=== PATIENT | male | born 1945 | race Caucasian/White ===

== ENCOUNTER 2017-04-14 01:23 | Inpatient (IN) | payer MEDICARE ==
[2017-04-14] VITALS (11 sets, daily range): BP systolic 125–154; BP diastolic 52–84; PULSE 79–105; RESP 18–40; O2SAT 92–98
[~2017-04-14] VITALS: Ht 182.9 cm; Wt 130.1 kg
[~2017-04-14 01:23] MED LIST: AMLO2.5T PO; ASPI81TA53 PO; GLBR5T PO; INSU100I SUBQ; INSU100I13 SUBQ; LISI40TA PO; SIMV80TA4 PO
[2017-04-14 01:34] LABS: BASOPHILS % (AUTO) 0.1 % (0-3); EOSINOPHILS % (AUTO) 0.6 % (0-5); MONOCYTES % (AUTO) 8.6 % (4-12); Mean Corpuscular Hemoglobin 28.6 pg (27.0-35.0); Mean Corpuscular Volume 86.8 fL (81-100); NEUTROPHILS % (AUTO) 81.3 % (40-74); Platelet Count 289 bil/L (150-400)
--- NOTE | 2017-04-14 01:41 | ED.REPORT ---
HPI-General Illness Date of Service April 14, 2017 ED Provider: Dr. Garcia Pt is a 71 year old male with a history of diabetes mellitus, hyperlipidemia, and hypertension who presents to the ED via EMS due to falling off his back porch. His blood sugar was 467 on route, and 530 upon recheck at 01:48. Pt has no memory of falling off the porch. Per , the patient took a sleeping pill, but the EMS couldn't find any sleeping pills. Pt has an infection, with signs of purulent drainage from the right mastoid, that has been present for the past two months, and he has not been previously seen for it. Patient denies fever, chest pain, abdominal pain, headache, neck pain, back pain. Patient admits to nausea and vomiting previously. Pt arrived with stool on hands and legs likely due to falling into dog stool in the yard. History is limited due to patient condition. Nursing Notes Stated Complaint: HYPERGLYCEMIA Chief Complaint: General Complaint Nursing Notes Reviewed: Yes Allergies: Coded Allergies: No Known Allergies (Unverified Allergy, Unknown, 04/14/17) Scheduled Amlodipine (Amlodipine) 2.5 Mg Tablet 2.5 MG PO AM Amlodipine (Amlodipine) 2.5 Mg Tablet 5 MG PO QPM Aspirin (Aspirin) 81 Mg Tablet 81 MG PO DAILY Glyburide (Glyburide) 5 Mg Tab 10 MG PO BIDAC Insulin Glargine (Lantus U100 Solostar Insulin Pen) 100 Unit/1 Ml Insuln.pen 45 UNIT SUBQ HS Lisinopril (Lisinopril) 40 Mg Tablet 40 MG PO BID Simvastatin (Simvastatin) 80 Mg Tablet 40 MG PO HS Scheduled PRN Insulin Aspart (NovoLOG U-100 Pen) 100 Unit/Ml Insuln.pen 0-20 UNITS SUBQ TIDWM PRN PRN sliding scale General Time Seen by MD: 01:40 Chief Complaint Other (Fall ) Hx Obtained From: Patient, EMS Arrived By: Ambulance Caused by: Fall from height... Severity: Current: No pain currently Severity: Maximum: No pain Past Medical History Past Medical History Reports: Diabetes mellitus, Hyperlipidemia, Hypertension Past Surgical History None reported Smoking History Never Smoker Social History Alcohol Use: Denies alcohol use Drug Use: Denies drug use Ambulatory Status Independent Review of Systems +draining from right mastoid Full Review of Systems Constitutional: Denies: Chills, Fever Cardiovascular: Denies: Chest pain GI: Reports: Nausea, Vomiting, Denies: Abdominal pain Neurologic: Reports: Change LOC, Denies: Headache Complete sys rev & neg: except as marked. Physical Exam Vital Signs Vital Signs Date Time Temp Pulse Resp B/P Pulse Ox O2 Delivery O2 Flow Rate FiO2 04/14/17 06:31 36.9 88 18 152/84 98 04/14/17 04:00 36.8 82 20 140/52 98 04/14/17 01:37 37.1 105 20 150/66 97 Nasal Cannula 2 Initial VS: Reviewed Head / Eyes: Atraumatic, Normocephalic, PERRL Neck: Supple, Full range of motion Respiratory: Breath sounds normal, Clear to auscultation, No respiratory distress Extremities: Vascular intact, Neuro intact, No swelling General/Constitutional: Awake, Cooperative Appearance / Presentation: Positive: Obese Sedated, but arousable. Fecal matter smeared on hands and knees. ENT: Atraumatic, Airway patent Mouth: Positive: Mucous membranes dry Right Ear / Mastoid: Positive: Discharge purulent (large amounts), Mastoid area red Cardiovascular: Heart rate NL, Regular rhythm, Heart sounds NL, No gallop, No murmurs, No rubs Distant heart sounds Abdomen: Atraumatic, Soft, Non-tender Skin: No rash, Warm, Dry Male Genitourinary: Atraumatic Uncircumcised Not incontinent Neurologic: No motor deficits Sedated but arousable Interpretation & Diagnostics Lab Results Interpretation Result Diagram: 04/14/17 1305 04/14/17 1305 Test 04/14/17 01:31 04/14/17 02:50 Erythrocyte Sedimentation Rate 63mm/hr (0-30) Prothrombin Time 10.0sec (8.1-12.5) Prothromb Time International Ratio 0.94ratio Activated Partial Thromboplast Time 25.2sec (22.8-33.0) Hemoglobin A1c 11.1% (4.8-5.6) Phosphorus Level 3.2mg/dL (2.5-4.9) Total Bilirubin 0.3mg/dL (0.0-1.2) Aspartate Amino Transf (AST/SGOT) 13U/L (0-50) Alanine Aminotransferase (ALT/SGPT) 11U/L (0-44) Alkaline Phosphatase 118U/L (25-160) Pro-B-Type Natriuretic Peptide 731pg/mL (0-376) Total Protein 7.1g/dL (6.4-8.4) Albumin 3.1g/dL (3.4-5.0) Procalcitonin 0.37ng/mL (0.00-0.08) Ketones Small (Negative) Urine Color Yellow (YELLOW) Urine Appearance Clear (CLEAR,HAZY) Urine pH 5.0 (5.0-8.0) Urine Specific [place] 1.022 (1.003-1.035) Urine Protein 30mg/dL (NEG,TRACE) Urine Glucose (UA) >1000mg/dL (NEGATIVE) Urine Ketones Negativemg/dL (NEGATIVE) Urine Occult Blood Small (NEGATIVE) Urine Nitrite Negative (NEGATIVE) Urine Bilirubin Negative (NEGATIVE) Urine Urobilinogen Normalmg/dL (NORMAL) Urine Leukocyte Esterase Negative (NEGATIVE) Urine RBC 0-2/hpf (0-2) Urine WBC 6-10/hpf (0-5) Urine Epithelial Cells Few/hpf (NONE-MOD) Urine Crystals None seen (NONE SEEN) Urine Bacteria None/hpf (NONE-FEW) Urine Hyaline Casts None/lpf (NONE) Urine Granular Casts None seen (NONE SEEN) Urine Waxy Casts None seen (NONE SEEN) Urine Red Blood Cell Casts None seen (NONE SEEN) Urine White Blood Cell Casts None seen (NONE SEEN) Urine Mucus Present (None Seen) Urine Trichomonas None seen (NONE SEEN) Urine Yeast None (NONE SEEN) Urine Culture Reflexed Indicated X-Ray Chest Interpretation View: Portable, 1 view Interpretation / Wet Read by: Wet read ED physician NL X-Ray Chest Findings: No infiltrate, No acute disease CT Head Interpretation CONCLUSION: Right suboccipital neck-scalp contusion. No acute intacranial abnormality. Streak artifact. Trabnsmitted to the ED at 04:03 by Maricarmen Edwards M.D. Study: Head CT no contrast Interpretation / Wet Read by: Interpret - Radiologist CT C-Spine Interpretation CONCLUSION: Motion artifact. Decreased fine detail. Degenerative changes, especially at C5-C7. No evidence of fracture or subluxation. Moderate right suboccipital-upper neck presumed soft tissue contusion. Mild cervical carotid calcifications. Minimally prominent cervical lymph nodes. Unremarkable extreme lung apices. Transmitted to ED 04:08 by Maricarmen Edwards M.D. Study type: CT no contrast Interpretation / Wet Read by: Interpret - Radiologist Procedures Laceration Management Debridement: None Re-Eval/Medical Decision Med Decision/Clinical Course 71-year-old diabetes presents with altered mental status, apparently after taking a sleeping pill. He had a low level fall without apparent injury, but apparently fell into some dog waste. 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 This may well account for his hyperglycemia. He has no evidence of DKA. He briefly had an elevated lactate, which is now resolved. He is begun with Zosyn and vancomycin for soft tissue infection. Culture of the drainage has been obtained, along with blood cultures. He is admitted for further evaluation and management to the medical service. Time of Eval: 04:12 Re-Evaluation/Progress Note: Pt rechecked. Informed pt of plan for admission. Pt understands and agrees with plan for admission. All questions addressed. Consultation : Referral / Consult Name: Jase Newman MD Consulted With: Hospitalist Call Returned at: 04:13 Concrete Analyst: Will see patient, Agrees with eval, Agrees with plan, Accepts admit Counseled Regarding: Diagnosis, Lab results, Need for admission Discharge & Departure Primary Impression: Sepsis Sepsis type: sepsis due to unspecified organism Qualified Code: A41.9 - Sepsis, unspecified organism Additional Impressions: Mastoid abscess Laterality: right Qualified Code: H70.001 - Acute mastoiditis without complications, right ear Hyperglycemia Altered mental status Altered mental status type: somnolence Qualified Code: R40.0 - Somnolence Disposition: ADMITTED TO HOSPITAL Discharge Condition All VS Reviewed: Yes Condition: Stable Referrals: Graeme Steward MD (PCP) Scribe Attestation Portions of this note were transcribed by David Griggs and Barb Conley. I, Dr. Garcia personally performed the history, physical exam and medical decision -making; I reviewed and confirmed the accuracy of the information in the transcribed note. Signed by: David Griggs and Barb Conley, Scribe, 04/14/17 and 0230. copies to: Graeme Steward MD, Christopher W MD April 14, 2017 01:41 Barb Robert 23, 2017 01:57 DAVID GRIGGS April 14, 2017 02:32 Urine Hyaline Casts None/lpf (NONE) Urine Granular Casts None seen (NONE SEEN) Urine Waxy Casts None seen (NONE SEEN) Urine Red Blood Cell Casts None seen (NONE SEEN) Urine White Blood Cell Casts None seen (NONE SEEN) Urine Mucus Present (None Seen) Urine Trichomonas None seen (NONE SEEN) Urine Yeast None (NONE SEEN) Urine Culture Reflexed Indicated Lactic Acid Level 1.6mmol/L (0.4-2.0) X-Ray Chest Interpretation View: Portable, 1 view Interpretation / Wet Read by: Wet read ED physician NL X-Ray Chest Findings: No infiltrate, No acute disease CT Head Interpretation CONCLUSION: Right suboccipital neck-scalp contusion. No acute intacranial abnormality. Streak artifact. Trabnsmitted to the ED at 04:03 by Maricarmen Edwards M.D. Study: Head CT no contrast Interpretation / Wet Read by: Interpret - Radiologist CT C-Spine Interpretation CONCLUSION: Motion artifact. Decreased fine detail. Degenerative changes, especially at C5-C7. No evidence of fracture or subluxation. Moderate right suboccipital-upper neck presumed soft tissue contusion. Mild cervical carotid calcifications. Minimally prominent cervical lymph nodes. Unremarkable extreme lung apices. Transmitted to ED 04:08 by Maricarmen Edwards M.D. Study type: CT no contrast Interpretation / Wet Read by: Interpret - Radiologist Procedures Laceration Management Debridement: None Re-Eval/Medical Decision Med Decision/Clinical Course 71-year-old diabetes presents with altered mental status, apparently after taking a sleeping pill. He had a low level fall without apparent injury, but apparently fell into some dog waist. He has a chronic infection of his right Herminio O auricular area, which is over the mastoid prominence, but does not involve the bone or the mastoid itself. This may well account for his hyperglycemia. He briefly had an elevated lactate, which is now resolved. He is begun with Zosyn and vancomycin for soft tissue infection. Culture of the drainage has been obtained, along with blood cultures. He is admitted for further evaluation and management medical services. Time of Eval: 04:12 Re-Evaluation/Progress Note: Pt rechecked. Informed pt of plan for admission. Pt understands and agrees with plan for admission. All questions addressed. Consultation : Referral / Consult Name: Jase Newman MD Consulted With: Hospitalist Call Returned at: 04:13 Concrete Analyst: Will see patient, Agrees with eval, Agrees with plan, Accepts admit Counseled Regarding: Diagnosis, Lab results, Need for admission Discharge & Departure Primary Impression: Sepsis Sepsis type: sepsis due to unspecified organism Qualified Code: A41.9 - Sepsis, unspecified organism Additional Impressions: Mastoid abscess Laterality: right Qualified Code: H70.001 - Acute mastoiditis without complications, right ear Hyperglycemia Altered mental status Disposition: ADMITTED TO HOSPITAL Discharge Condition All VS Reviewed: Yes Condition: Stable Referrals: Graeme Steward MD (PCP) Scribe Attestation Portions of this note were transcribed by David Griggs and Barb Conley. I, Dr. Garcia personally performed the history, physical exam and medical decision -making; I reviewed and confirmed the accuracy of the information in the transcribed note. Signed by: aDvid Griggs and Kale Bardales, 04/14/17 and 0230. copies to: Graeme Steward MD, Christopher W MD April 14, 2017 01:41 Barb Robert April 14, 2017 01:57 DAVID GRIGGS April 14, 2017 02:32
[2017-04-14] MEDS ORDERED: 0.9% Sodium Chloride 1,000 ML IV ONE (01:48)
[2017-04-14 02:10] LABS: INR 0.94 ratio
[2017-04-14] MEDS ORDERED: Insulin Human REGular-Omnicell 100 Unit/mL IV ONE ×2 (02:25→04:20)
[2017-04-14 02:41] LABS: Magnesium 1.7 mg/dL (1.6-2.6); Phosphorus 3.2 mg/dL (2.5-4.9)
[2017-04-14 03:33] LABS: APPEARANCE,URINE CLEAR (CLEAR,HAZY); COLOR,URINE YELLOW (YELLOW); OCCULT BLOOD,URINE SMALL (NEGATIVE); UROBILINOGEN,URINE NORMAL (NORMAL)
[2017-04-14] MEDS ORDERED: 0.9% Sodium Chloride 1,000 ML IV SCH ×2 (04:14)
[2017-04-14] MEDS ORDERED: Ondansetron 2 mg/mL 2 mL Inj IVPUSH PRN ×2 (04:15→12:45)
[2017-04-14] MEDS ORDERED: Alum-Mag Hydrox-Simeth 30 mL Suspension PO PRN ×2 (04:15→12:45)
[2017-04-14] MEDS ORDERED: Vancomycin Dose per Pharmacist XX ONE (04:15)
[2017-04-14] MEDS ORDERED: Piperacillin-Tazo 3.375 Gm Inj 3.375 GM in Dextrose 5% Minibag Plus 50 ML IV ONE (04:15)
[2017-04-14] MEDS ORDERED: Polyethylene Glycol (PEG) 17 Gm Powder PO PRN ×2 (04:15→12:45)
[2017-04-14] MEDS ORDERED: Dextrose 10% 250 ML IV PRN ×2 (04:20→12:45)
[2017-04-14] MEDS ORDERED: Glucose 40% Oral Gel 15 Gm Tube PO PRN (04:20)
[2017-04-14] MEDS ORDERED: Vancomycin Inj 2,000 MG in 0.9% Sodium Chloride 500 ML IV ONE (04:25)
[2017-04-14] MEDS: Insulin LISPRO 300 Unit/3 mL Inj SUBQ SCH ×2 (08:00→12:30)
--- NOTE | 2017-04-14 08:16 | DRSVH ---
PROCEDURE: CT BRAIN WITHOUT CONTRAST ([id number]) INDICATIONS: mastoid drainage, fall, altered ms TECHNIQUE: Noncontrast 4.5 mm thick angled axial sections acquired from the foramen magnum to the vertex, with c oronal reformats. COMPARISON: None. FINDINGS: Image quality: Motion artifacts are present. CSF spaces: Basal cisterns are patent. No extra-axial fluid collections. The ventricles are symmet jack in size and shape. Brain: No intracranial bleeds or masses. There is mild cerebral volume loss for age. There are mil d periventricular and deep white matter chronic small vessel ischemic changes. There is intracranial internal carotid artery atherosclerosis. Skull and face: Calvarium and visualized facial bones appear intact, without suspicious lesions. Ri ght occipital soft tissue swelling. Sinuses: Visualized sinuses and mastoids are clear. IMPRESSION: 1. No acute intracranial abnormalities. 2. Mild cerebral volume loss and chronic microvascular ischemic changes. 3. Right occipital soft tissue swelling. No significant discrepancy with the assistant casino shift manager radiology preliminary report. Dictated by: An Moise M.D. on 04/14/2017 at 8:12 Approved by: An Moise M.D. on 04/14/2017 at 8:14
--- NOTE | 2017-04-14 08:20 | DRSVH ---
PROCEDURE: CT CERVICAL SPINE WITHOUT CONTRAST ([id number]) INDICATIONS: mastoid drainage, fall, altered ms TECHNIQUE: Noncontrast 3 mm thick sections acquired from the skull base to the T4 level. Sagittal and coronal r eformats were then constructed. For radiation dose reduction, the following was used: automated exp osure control, adjustment of mA and/or kV according to patient size. COMPARISON: None. FINDINGS: Image quality: Motion artifacts degrade images. Bones: No fractures or dislocations. Visualized superior ribs are intact. Partial opacification of the right mastoid. There is mild degenerative disease at C4-C5, C5-C6 and C6-C7. Mild bilateral face t arthropathy, most pronounced at C2-C3 on the left. Soft tissues: Prevertebral soft tissues are normal in thickness. No paravertebral hematomas. No ap ical pneumothoraces. Soft tissue swelling in the right occipital region. Scattered prominent cervica l lymph nodes is noted bilaterally. IMPRESSION: 1. Limited examination due to motion artifacts. 2. No definitive fractures in cervical spine. 3. Degenerative changes as described. 4. Soft tissue swelling in the right occipital region. 5. Partial opacification of right mastoids. Recommend clinical correlation for mastoiditis. Dictated by: nA Moise M.D. on 04/14/2017 at 8:15 Approved by: An Moise M.D. on 04/14/2017 at 8:19
[2017-04-14] MEDS ORDERED: Heparin 5,000 Unit/mL Inj SUBQ SCH (08:30)
[2017-04-14] MEDS ORDERED: Vancomycin Dose per Pharmacist XX SCH (08:30)
[2017-04-14] MEDS ORDERED: Sodium Chloride LOK Flush 10 mL Syringe IVFLUSH SCH (08:30)
--- NOTE | 2017-04-14 09:11 | DRSVH ---
PROCEDURE: X-RAY CHEST ONE VIEW, PORTABLE ([id number]) INDICATIONS: altered mental status TECHNIQUE: One view of the chest was acquired. COMPARISON: [facility], CR, XR CHEST 2VW, 02/02/2017, 12:29. [facility], CR , CHEST 1VW (PORTABLE), 04/03/2015, 10:19. FINDINGS: Surgical changes and devices: None. Lungs and pleura: No pleural effusions or pneumothorax. Lungs are clear, aside from minimal atelect asis versus scarring involving the mid left lung. Mediastinum: Mediastinal contours appear normal. Heart size is normal. Bones and chest wall: No suspicious bony lesions. Overlying soft tissues appear unremarkable. IMPRESSION: No acute cardiopulmonary disease. Dictated by: Karthik GREENE Interpreted: An Moise MD on 04/14/2017 at 9:09 Transcribed by: ARELY on 04/14/2017 at 9:11 Approved by: An Moise M.D. on 04/14/2017 at 11:59
--- NOTE | 2017-04-14 09:53 | NUR ---
Admit MPC from ED rm 3004 Pt arrived to unit at 0820 on stretcher denying pain. Pt appears A&O x3, disoriented at times. Seen to be unwrapping coban from IV site, trying to get out of bed. Family unreachable at this time. Primary RN sitting just outside of pts room for closer observation. IV patent, NS and Vanco infusing. Rangel placed in ED d/t confusion-per report. Waiting on day hospitalist to see pt. Abscess noted on back of R head-occipital area. cleaned with NS and sterile gauze applied. Pt denies pain there, is seen to be scratching at the area. Tele placed on. technical supervisor called reporting 4bts of Vtach lasting 1.8 sec with HR at 90 bpm. MD notified. Pt oriented to room and unit, denies having questions. Will continue with frequent monitoring.
[2017-04-14] MEDS ORDERED: Magnesium Sulf 4 Gm/100 mL H2O 4 GM in IV Premix 1 EACH IV ONE (10:40)
--- NOTE | 2017-04-14 10:54 | NUR ---
Pt. O2 sat between 80-90 while sleeping. Applied nasal cannula @ 2L/min
[2017-04-14] MEDS ORDERED: INSULIN GLARGINE 30 UNIT SUBQ SCH (12:55)
[2017-04-14 13:14] LABS: BASOPHILS % (AUTO) 0.1 % (0-3); EOSINOPHILS % (AUTO) 0.4 % (0-5); MONOCYTES % (AUTO) 7.4 % (4-12); Mean Corpuscular Hemoglobin 28.5 pg (27.0-35.0); Mean Corpuscular Volume 87.4 fL (81-100); Platelet Count 278 bil/L (150-400)
[2017-04-14 13:41] LABS: Magnesium 1.9 mg/dL (1.6-2.6)
[2017-04-14] MEDS ORDERED: Piperacillin-Tazo 3.375 Gm Inj 3.375 GM in Dextrose 5% Minibag Plus 50 ML IV SCH (14:00)
[2017-04-14] MEDS ORDERED: Magnesium Sulf 2 Gm/50mL Water 2 GM in IV Premix 1 EACH IV ONE (14:00)
--- NOTE | 2017-04-14 14:28 | NUR ---
Social Work-initial assessment: Data:See initial assessment. Pt is a 71 y/o male who was admitted on 04/14/17 for hyperglycemia/confusion per H&P. Pt's insurance is [facility] and [facility] [employer] and PCP is Graeme Steward MD. Pt also had first appt scheduled with diabetic specialist Dr. Porras but missed this appt. EMR Reviewed. Pt's readmission score is 2-no risk. SW met with pt and Olga to discuss discharge planning, SW role explained. Pt presented as drowsy but other delgado alert and oriented x3. Pt resides at home with , daughter, and grandchild in a 3 level home near [place] with two steps to enter and at least 10 internal steps where pt remains independent with basic ADLs. Pt uses no DME at baseline and drives POV. Pt has no HH or SNF history. Pt has not completed DPOA/ advanced directive and SW provided paperwork to review and complete. Pt has no care home care or [facility] benefits. SW checked in with pt and about home environment as it was reported pt was found with feces on him and had an untreated abscess on the back of his neck. Pt's stated she has been telling him for the past two weeks to go in to get the abscess looked at, and the feces was possibly from when he fell last night and defecated himself. Pt's requested information on food resources, as she would like to stay with her at the hospital and has no funds for food (her debit card needs to be replaced). SW provided info on local food page and meal programs. Pt's daughter to provide transport home at discharge. SW provided phone number and plan on white board in room. SW will continue to follow. Assessment:Pt who resides at home with family and is independent at baseline. Plan:Pt to likely discharge home when medically ready via POV. SW to follow for possible HH needs. SW will continue to follow. TERRANCE Carlos Addendum: 04/14/17 at 1440 by RAQUEL RADFORD SS Amended: Links added.
--- NOTE | 2017-04-14 14:46 | DRSVH ---
PROCEDURE: US SOFT TISSUE OF HEAD OR NECK SONOGRAM INDICATIONS: right neck cellulitis and ? abscess TECHNIQUE: Real-time scanning was performed of the neck region of interest, with image documentation. COMPARISON: [facility], CT, CT CERVICAL SPINE WO CON, 04/14/2017, 3:26. FINDINGS: There is marked soft tissue swelling in the posterior right upper neck/mastoid region. No d rainable fluid collection. Prominent lymph node measures 9 mm short axis, most like a reactive. IMPRESSION: 1. No drainable fluid present to suggest abscess. 2. Marked soft tissue swelling over the posterior right upper neck/mastoid region consistent with alta lulitis. Dictated by: An Moise M.D. on 04/14/2017 at 14:42 Approved by: An Moise M.D. on 04/14/2017 at 14:44
[2017-04-14] MEDS ORDERED: ASPI-973 PO (14:58)
--- NOTE | 2017-04-14 15:08 | NUR ---
home dose of lantus insulin noted when updating home medication list that patient currently takes 45 units lantus at HS per patient report and per primary MD list. noted that previous dose in computer from previous visit is 30 units and MD continued the 30 units at HS dose. primary RN Ca Garber notified and will notify MD that patient not takes 45 units of lantus at HS.
[2017-04-14] MEDS: Piperacillin-Tazo 3.375 Gm Inj 3.375 GM in Dextrose 5% Minibag Plus 50 ML IV SCH (16:07)
--- NOTE | 2017-04-14 16:09 | NUR ---
Wound Note 71 yo diabetic male admitted to [facility] with altered mentation. Wound order received to assess right mastoid process wound. Patient reports wound is approx 2 weeks in duration. Tissue behind ear is hard and indurated for approx 7 cm around a small 0.5 cm purulent draining ulcer, drainage is sosa and foul smelling. I am able to probe with a q-tip 3 cms inferiorly (6 o'clock). Patient is quite tolerant to wound care today. Will pack with 1/4 " packing strip and cover with gauze and tape until addressed by surgery service.
[2017-04-14] MEDS: DAPTOmycin Inj 750 MG in 0.9% Sodium Chloride 50 ML IV SCH (16:22)
[2017-04-14] MEDS: Heparin 5,000 Unit/mL Inj SUBQ SCH (16:22)
--- NOTE | 2017-04-14 16:36 | CONS ---
[address] [address] CONSULTATION REPORT PATIENT: GUZMAN BRADLEY : 1945 MR#: [id number] ADMIT: 04/14/2017 JOB ID: [id number] DATE OF SERVICE: 04/14/2017 REASON FOR CONSULTATION: Right posterior auricular mastoid area soft tissue infection. I thank Dr. Herron for this timely consult. HISTORY OF THE PRESENT ILLNESS: The patient is a 71-year-old diabetic gentleman who ran out of insulin for the past few days Due to a shipping error. Even before he ran out of insulin though, he started to develop a tender, draining, fluctuant, purulent area behind his right ear. It is unclear how exactly this process started and it is unclear exactly even how long it started. The patient says it has been there two months. His says a week or two and a daughter says less. In any event, this has been waxing and waning but there has been a great deal of purulence and some pain in the area behind the ear. His daughter attempted an amateur I and D on it approximately three days ago which drained a great deal of bloody pus and may have made it actually somewhat better. The patient presented to the hospital and was admitted today because he was apparently urinating off the porch and fell. This caused the paramedics to be summoned and the patient was brought here and admitted. At the time of admission earlier today, there was some question about confusion as well as obvious very significant infection and some systemic toxicity but he since rallied some and is now able to give us some independent history though certainly not a complete story. The patient and his family are uncertain as to how this lesion behind his ear started or even exactly how long it has been present but they do agree it got steadily worse until the I and D by his daughter which seemed to improve things at least somewhat. There has been no associated subjective fevers, chills, or sweats. He has had pain around the site of the infection but no global headache, no change in vision. No significant cough, shortness of breath. He has had a bit of nausea but no vomiting or diarrhea. No urinary tract symptoms and no infections known elsewhere in the skin or soft tissues at this time. PAST MEDICAL HISTORY: 1. Diabetes. 2. Hyperlipidemia. 3. Hypertension. 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 He is a former smoker and no longer consumes alcohol products. He lives with his family in the area above [place], but formally traveled all around the [place]. FAMILY HISTORY: Negative for TB in first- and second-degree relatives. REVIEW OF SYSTEMS: Was a bit limited as the patient is somewhat lethargic but is able to offer some history. The patient tells us he is not having significant headache. No visual change. No sore throat or trouble swallowing. No significant cough, shortness of breath, chest pain. He has had a bit of nausea. No vomiting. No diarrhea. No dysuria, urgency, or frequency. No particular new problems with his joints. He has just had the drainage and pain from behind his right ear for, he says, two full months. No actual change in hearing either. Remainder of the review of systems was unobtainable or negative. PHYSICAL EXAMINATION: Reveals an afebrile gentleman, temp 37.6. That is his highest of his now about 12 hours here in the hospital. Pulse 83, respiratory rate 36 at times. When we evaluated the patient though, he was probably much lower in the mid 20s. He is saturating well on 1 L. Blood pressure 154/69. He is in no acute distress but he is somewhat lethargic. Examination of the head reveals no trauma. There is a diffusely erythematous area behind the right ear, extending down to the area of the mastoid. The total area is probably 6 or 7 cm across. In the center of it there is a wound draining copious amounts of creamy-colored pus. Surprisingly palpation of this area with a gloved hand does not result in tremendous pain though it is a bit tender. The ear itself is not involved, nor is the neck per se involved. The other ear appears normal. Eyes without conjunctivitis or scleral icterus. Oral cavity: No thrush, hairy leukoplakia. Teeth in fair repair. Neck is supple. Mental status: The patient is alert and oriented x3 at this point, though earlier in the day, he was a little bit off. Lungs: Relatively clear bilaterally. Cardiac tones: Regular rate and rhythm without demonstrable murmur. Abdomen is soft, nontender, and quite obese. BMI currently 42. He does have a Rangel catheter which was installed after his admission and should be discontinued as soon as possible. No suprapubic fullness. Examination of the lower extremities: No synovitis, no cellulitis, no significant peripheral edema. Neurologically, the patient is intact: He can move everything and has reasonable sensation. LABORATORY STUDIES: Include white count 19,000 with left shift. Sed rate 63, creatinine 1.74. Liver function tests normal. BNP 731. Albumin 3.1. First creatinine was 1.94. That was in the media relations director hours today. A repeat done just an hour ago was 1.74 so a bit better. Glucose was an impressive 635 on admission. He has already all the way down to 237, with some insulin. INR normal. Urinalysis 6-10 white cells, probably normal given his age and other issues. Micro studies include a culture of the abscess which has been sent. It shows rare polys and no organisms so far, but based on the appearance of this purulent material it is going to grow something. Blood cultures are negative. Urine is pending. MRSA screen of the nose is pending. IMAGING: Multiple and include a chest x-ray, which is basically read as normal. C-spine CT scan: It shows no C-spine fracture. There is some soft tissue swelling in the right occiput which I think is the area of cellulitis we are looking at and a partial opacification of the right mastoid. Brain CT shows some volume loss and right occipital swelling again and finally a neck ultrasound shows nothing to suggest abscess but some marked soft tissue swelling of the right upper neck mastoid region consistent with the cellulitis we see on physical. IMPRESSION: This is a bit of an odd case in that the patient does not have malignant otitis externa which is very common in elderly poorly controlled diabetics as his ear is not involved nor does he appear to have mastoiditis clinically, even though he does have some suggestion of mastoiditis on the CT. It would be extraordinary for mastoiditis to perforate and drain onto the skin, such as are seeing here. More likely, I think this is a bad Staph or less likely Streptococcal infection arising from some pimple, furuncle, or carbuncle on the right postauricular area, which has just festered and worsened, perhaps being aided by his extraordinarily high blood sugars due to insulin nonadherence. He is currently on vancomycin and Zosyn which is reasonable but I do worry about an elderly gentleman with diabetic kidneys and an elevated creatinine receiving this synergistically nephrotoxic regimen. RECOMMENDATIONS: 1. While we await the MRSA screen and cultures, I would stop the vancomycin and instead use daptomycin. Daptomycin is a safer choice in these circumstances and I think we will soon be able to further clarify his antibiotics going forward. 2. Will continue with Zosyn. 3. We plan to add daptomycin. 4. A nasal MRSA screen is pending. 5. Will continue to follow this complex patient with you. Thank you very much for this consult.
[2017-04-14] MEDS: Insulin Human REGular 300 Unit/3 mL Inj SUBQ SCH ×2 (16:52→21:37)
[2017-04-14] MEDS ORDERED: Vancomycin Inj 1,000 MG in IV Premix 1 EACH IV SCH (18:00)
--- NOTE | 2017-04-14 18:57 | PCM.HPMED ---
Subjective Date of Service April 14, 2017 Primary Provider: Admitting Physician: Edinson Herron Primary Care Physician: Graeme Steward MD Attending Physician: Edinson Herron Chief Complaint: right neck abscess and drainage History of Present Illness: 71 year old male with a history of insulin dependant diabetes mellitus, hyperlipidemia, and hypertension who presents to the ED via EMS due to reported "falling off his back porch". His blood sugar was 467 on route, and 530 upon recheck in the ED. Patient himself does not recall any fall and tell me that the reason he came to the hospital was because of a neck abscess and drain that has been going on for the past 2 weeks. He says his daughter was trying to manage this at home by squeezing pus out of it but when it seemed that he wasn' t improving she decided to bring him to the hospital. He also tells med that he has not been taking insulin for the past one week after running out of prescription and missing his appointment with the b2b account executive last . He otherwise denies any fever, chills, nausea, vomiting, change in mental status , fall, or passing out. Review of Systems: Constitutional: Negative, except as otherwise mentioned in the history above. Ophthalmologic: Negative, except as otherwise mentioned in the history above. Cardiovascular: Negative, except as otherwise mentioned in the history above. Respiratory: Negative, except as otherwise mentioned in the history above. Gastrointestinal: Negative, except as otherwise mentioned in the history above. Genitourinary: Negative, except as otherwise mentioned in the history above. Musculoskeletal: Negative, except as otherwise mentioned in the history above. Neurological: Negative, except as otherwise mentioned in the history above. Psychiatric: Negative, except as otherwise mentioned in the history above. Hematologic/Lymphatic: Negative, except as otherwise mentioned in the history above. Allergic/Immunologic: Negative, except as otherwise mentioned in the history above. Allergies Coded Allergies: No Known Allergies (Unverified Allergy, Unknown, 04/14/17) Home Medications Amlodipine 2.5 Mg Tablet 2.5 Mg PO AM 30 Days Ref 0 Amlodipine 2.5 Mg Tablet 5 Mg PO QPM 30 Days Ref 0 Lisinopril 40 Mg Tablet 40 Mg PO BID 30 Days Ref 0 Simvastatin 80 Mg Tablet 40 Mg PO HS 30 Days Ref 0 Aspirin 81 Mg Tablet 81 Mg PO DAILY Ref 0 Glyburide 5 Mg Tab 10 Mg PO BIDAC 30 Days Ref 0 Insulin Aspart 100 Unit/Ml Insuln.Pen (NovoLOG U-100 Pen) 0-20 Units SUBQ TIDWM PRN PRN sliding scale Insulin Glargine 100 Unit/1 Ml Insuln.Pen (Lantus U100 Solostar Insulin Pen) 45 Unit SUBQ HS #1 PENINJ Ref 0 Exam Vital Signs & I/O Vital Sign- Last 8 Hours Date Time Temp Pulse Resp B/P Pulse Ox O2 Delivery O2 Flow Rate FiO2 04/14/17 16:49 37.8 82 40 153/67 95 OxyMask 2.00 04/14/17 11:55 37.6 83 36 154/69 96 Nasal Cannula 1.00 Intake and Output- Last 8 Hour 04/14/17 Cumulative From/Thru 07:00 04/14/17 01:37 - 04/14/17 04:20 Intake Total 1000 ml 1000 ml Output Total 60 ml 60 ml Balance 940 ml 940 ml Intake IV Total 1000 ml 1000 ml Output Urine Total 60 ml 60 ml # Voids 1 1 Lab & Micro Results Laboratory Tests Test 04/14/17 01:31 04/14/17 02:20 04/14/17 02:50 04/14/17 04:45 White Blood Count 17.6th/mm3 (3.8-10.1) Red Blood Count 4.76mil/mm3 (4.40-5.80) Hemoglobin 13.6g/dL (13.8-17.2) Hematocrit 41.3% (41.0-50.0) Mean Corpuscular Volume 86.8fL (81-100) Mean Corpuscular Hemoglobin 28.6pg (27.0-35.0) Mean Corpuscular Hemoglobin Concent 32.9% (32.0-37.0) Red Cell Distribution Width 12.4% (12.3-15.4) Platelet Count 289bil/L (150-400) Neutrophils (%) (Auto) 81.3% (40-74) Lymphocytes (%) (Auto) 8.8% (14-46) Monocytes (%) (Auto) 8.6% (4-12) Eosinophils (%) (Auto) 0.6% (0-5) Basophils (%) (Auto) 0.1% (0-3) Erythrocyte Sedimentation Rate 63mm/hr (0-30) Prothrombin Time 10.0sec (8.1-12.5) Prothromb Time International Ratio 0.94ratio Activated Partial Thromboplast Time 25.2sec (22.8-33.0) Sodium Level 133mEq/L (134-144) Potassium Level 5.2mEq/L (3.5-5.2) Chloride Level 91mEq/L (97-108) Carbon Dioxide Level 22mmol/L (18-29) Blood Urea Nitrogen 53mg/dL (8-27) Creatinine 1.94mg/dL (0.76-1.27) Estimat Glomerular Filtration Rate 36mL/min (>59) Glucose Level 635mg/dL (60-99) Calcium Level 9.1mg/dL (8.5-10.1) Phosphorus Level 3.2mg/dL (2.5-4.9) Magnesium Level 1.7mg/dL (1.6-2.6) Total Bilirubin 0.3mg/dL (0.0-1.2) Aspartate Amino Transf (AST/SGOT) 13U/L (0-50) Alanine Aminotransferase (ALT/SGPT) 11U/L (0-44) Alkaline Phosphatase 118U/L (25-160) Pro-B-Type Natriuretic Peptide 731pg/mL (0-376) Total Protein 7.1g/dL (6.4-8.4) Albumin 3.1g/dL (3.4-5.0) Procalcitonin 0.37ng/mL (0.00-0.08) Ketones Small (Negative) Lactic Acid Level 4.0mmol/L (0.4-2.0) 1.6mmol/L (0.4-2.0) Urine Color Yellow (YELLOW) Urine Appearance Clear (CLEAR,HAZY) Urine pH 5.0 (5.0-8.0) Urine Specific [place] 1.022 (1.003-1.035) Urine Protein 30mg/dL (NEG,TRACE) Urine Glucose (UA) >1000mg/dL (NEGATIVE) Urine Ketones Negativemg/dL (NEGATIVE) Urine Occult Blood Small (NEGATIVE) Urine Nitrite Negative (NEGATIVE) Urine Bilirubin Negative (NEGATIVE) Urine Urobilinogen Normalmg/dL (NORMAL) Urine Leukocyte Esterase Negative (NEGATIVE) Urine RBC 0-2/hpf (0-2) Urine WBC 6-10/hpf (0-5) Urine Epithelial Cells Few/hpf (NONE-MOD) Urine Crystals None seen (NONE SEEN) Urine Bacteria None/hpf (NONE-FEW) Urine Hyaline Casts None/lpf (NONE) Urine Granular Casts None seen (NONE SEEN) Urine Waxy Casts None seen (NONE SEEN) Urine Red Blood Cell Casts None seen (NONE SEEN) Urine White Blood Cell Casts None seen (NONE SEEN) Urine Mucus Present (None Seen) Urine Trichomonas None seen (NONE SEEN) Urine Yeast None (NONE SEEN) Urine Culture Reflexed Indicated Test 04/14/17 06:58 04/14/17 08:50 04/14/17 13:05 Lactic Acid Level 2.0mmol/L (0.4-2.0) 1.5mmol/L (0.4-2.0) White Blood Count 19.1th/mm3 (3.8-10.1) Red Blood Count 4.45mil/mm3 (4.40-5.80) Hemoglobin 12.7g/dL (13.8-17.2) Hematocrit 38.9% (41.0-50.0) Mean Corpuscular Volume 87.4fL (81-100) Mean Corpuscular Hemoglobin 28.5pg (27.0-35.0) Mean Corpuscular Hemoglobin Concent 32.6% (32.0-37.0) Red Cell Distribution Width 12.6% (12.3-15.4) Platelet Count 278bil/L (150-400) Neutrophils (%) (Auto) 84.0% (40-74) Lymphocytes (%) (Auto) 7.5% (14-46) Monocytes (%) (Auto) 7.4% (4-12) Eosinophils (%) (Auto) 0.4% (0-5) Basophils (%) (Auto) 0.1% (0-3) Sodium Level 139mEq/L (134-144) Potassium Level 4.8mEq/L (3.5-5.2) Chloride Level 101mEq/L (97-108) Carbon Dioxide Level 26mmol/L (18-29) Blood Urea Nitrogen 44mg/dL (8-27) Creatinine 1.74mg/dL (0.76-1.27) Estimat Glomerular Filtration Rate 41mL/min (>59) Glucose Level 237mg/dL (60-99) Calcium Level 8.7mg/dL (8.5-10.1) Magnesium Level 1.9mg/dL (1.6-2.6) Microbiology 04/14/17 Blood Culture, Received Pending 04/14/17 MRSA (PCR) - Preliminary, Resulted Presumptive Mrsa Pcr 04/14/17 Urine Culture, Received Pending 04/14/17 Gram Stain - Final, Resulted 04/14/17 Culture & Sensitivity, Resulted Pending 04/14/17 Anaerobic Culture, Resulted Pending Result Diagram: 04/14/17 1305 04/14/17 1305 PMH 1. Diabetes. 2. Hyperlipidemia. 3. Hypertension. 4. Morbid obesity Family History Denies any family history of heart disease or cancers Social History Hx Alcohol Use: No Hx Substance Use: No Hx Tobacco Use: No Smoking Status: Never Smoker Exam Vital Signs Vital Sign - Last Date Time Temp Pulse Resp B/P Pulse Ox O2 Delivery O2 Flow Rate FiO2 04/14/17 16:49 37.8 82 40 153/67 95 OxyMask 2.00 Intake and Output 04/13/17 04/13/17 04/14/17 Cumulative From/Thru 15:00 23:00 07:00 04/14/17 01:37 - 04/14/17 04:20 Intake Total 1000 ml 1000 ml Output Total 60 ml 60 ml Balance 940 ml 940 ml Intake IV Total 1000 ml 1000 ml Output Urine Total 60 ml 60 ml # Voids 1 1 General: Alert, Oriented X3, Cooperative, No Acute Distress Head: Normal Eyes: PERRLA, EOMI, Scleral Anicteric Nose: Mucous Membr Moist/[place] Mouth: Mucous Membr Moist/[place] Neck: Supple Chest & Lungs: Chest Wall Normal, Clear to auscultation & percussion Cardiovascular: Regular Rate/Rhythm Abdomen: Non-tender, Non-distended, Normoactive bowel tones, Soft Extremities: Other (1+ pitting edema in LE bilat) Skin: Other (diffusely erythematous area behind the right ear, extending down to the right side of neck with central ulceration draining pus) Neurological: Grossly Neurologically Intact, Cranial Nerves 2-12 Intact, Normal Speech Lab and Diagnostics Result Diagram: 04/14/17 1305 04/14/17 1305 X-Rays, CTs and MRIs Date of Service: 04/14/17147 PROCEDURE: X-RAY CHEST ONE VIEW, PORTABLE ([id number]) IMPRESSION: No acute cardiopulmonary disease. Dictated by: Karthik Molina RR Interpreted: An Moise MD on 04/14/2017 at 9:09 Transcribed by: ARELY on 04/14/2017 at 9:11 Approved by: An Moise M.D. on 04/14/2017 at 11:59 Date of Service: 04/14/17147 PROCEDURE: CT CERVICAL SPINE WITHOUT CONTRAST ([id number]) IMPRESSION: 1. Limited examination due to motion artifacts. 2. No definitive fractures in cervical spine. 3. Degenerative changes as described. 4. Soft tissue swelling in the right occipital region. 5. Partial opacification of right mastoids. Recommend clinical correlation for mastoiditis. Dictated by: An Moise M.D. on 04/14/2017 at 8:15 Approved by: An Moise M.D. on 04/14/2017 at 8:19 Date of Service: 04/14/17147 PROCEDURE: CT BRAIN WITHOUT CONTRAST ([id number]) IMPRESSION: 1. No acute intracranial abnormalities. 2. Mild cerebral volume loss and chronic microvascular ischemic changes. 3. Right occipital soft tissue swelling. No significant discrepancy with the insulation hoseman radiology preliminary report. Dictated by: An Moise M.D. on 04/14/2017 at 8:12 Approved by: An Moise M.D. on 04/14/2017 at 8:14 Additional Diagnostics: Date of Service: 04/14/17 1311 PROCEDURE: US SOFT TISSUE OF HEAD OR NECK SONOGRAM IMPRESSION: 1. No drainable fluid present to suggest abscess. 2. Marked soft tissue swelling over the posterior right upper neck/mastoid region consistent with cellulitis. Dictated by: An Moise M.D. on 04/14/2017 at 14:42 Approved by: An Moise M.D. on 04/14/2017 at 14:44 Assessment & Plan 71 year old male with a history of insulin dependant diabetes mellitus, hyperlipidemia, and hypertension who presents with possible "falling off his back porch" but also noted to have significant cellulitis and possible abscess of his posterior right neck with significant hyperglycemia and possible acute sepsis on presentation. # Acute sepsis (Tachycardia, tachypnea, leukocytosis, MATTEO, and lactic acidosis) with source likely right neck cellulitis. Present on admission. Clinically improving - Lactic acidosis resolved with IVF - Continue with IV antibiotics - Continue with supportive care # Acute right neck cellulitis, present on admission. Ongoing - Appreciate ID consult. will followup with recommendations. - IV Zosyn and Daptomycin per ID recommendations - Followup pending cultures # Possible right neck abscess. - Imaging does not show any obvious pocket of fluid - Discussed with wound care nursing and per recommendation have consulted general surgery. Will followup with further resc - Continue with IV Abx as noted above - Continue with wound care - IV Morphine prn for pain control # History of diabetes with significant hyperglycemia and possible mild ketoacidosis, present on admission. Improved - Likely due to missing insulin regimen over the past week - Resume home dose Insulin - Start ISS - Followup HgA1C # History of hypertension. Currently somewhat hypertensive - Hold BP medications until certain patient hemodynamically stable and not worsening sepsis # Acute kidney injury, present on admission. Ongoing - Likely pre-renal azotemia - IVF and followup - Avoid nephrotoxic medications Expected length of hospital stay is greater than 2 midnights and likely 3-4 days GI Prophylaxis: Not indicated VTE Prophylaxis: Sub-Q Heparin (Unfractionated) VTE Mechanical Devices: Intermittant Pneumatic CD Resuscitation Status: CPR: Attempt Resuscitation (discussed and verified with patient) Edinson Herron April 14, 2017 18:57
--- NOTE | 2017-04-14 19:33 | NUR ---
Vtach/temp/RR Call recd from tele reporting 4 bts of vtach lasting 1.8 sec with HR at 90. MD notified, pt asymptomatic. Pt with continuos RR in 30s-40s and low grade temp noted with last 2 VS checks. MD updated, IVF orders recd. Passed on take NOC shift for frequent VS monitoring.
--- NOTE | 2017-04-14 20:11 | CONS ---
[address] [address] CONSULTATION REPORT PATIENT: GUZMAN BRADLEY : 1945 MR#: [id number] ADMIT: 04/14/2017 JOB ID: [id number] DATE OF SERVICE: 04/14/2017 CHIEF COMPLAINT/IDENTIFICATION: Dr. Herron has asked us to see this 71-year-old man with a right neck infection. HISTORY OF PRESENT ILLNESS: The patient was brought to the hospital by the medics, having fallen down at home. His attributes this to him taking a sleeping pill as he was not feeling well, though there is some question as to how this was related to other medical matters. He does have a known history of diabetes and came in with a blood sugar over 400. I am asked to see him regarding this right neck infection and he now tells me that this has been draining for several weeks. He has not been on antibiotics. PAST MEDICAL HISTORY: Diabetes, hypertension, hyperlipidemia, morbid obesity. MEDICATIONS: 1. Amlodipine. 2. Lisinopril. 3. Simvastatin. 4. Aspirin. 5. Glyburide. 6. Insulin. ALLERGIES: No reported allergies. SOCIAL HISTORY: He is seen in the hospital, requesting to shower. He is with his . FAMILY HISTORY/ REVIEW OF SYSTEMS: Per Dr. Herron's admission history and physical. These have been reviewed. PHYSICAL EXAMINATION: The temperature is 37.8, pulse of 80, blood pressure recorded at 153/67. Directed examination reveals woody erythema on the right posterior neck and postauricular area without crepitus with blanching erythema. He does have a punctate lesion that appears to have been packed. I removed the packing and there is expressible pus but no clear pocket to be drained. LABORATORY DATA: His white count is 19.1. His hematocrit is 38. Blood sugar is currently recorded at 237. Lactic acid is 1.5. Creatinine is 1.74. IMAGING: He had multiple imagings including several spine CTs, brain CT and a neck ultrasound since being admitted as he was found in a state of confusion having had a ground level fall. Unfortunately, I am unable to access the films of the brain CT or the cervical spine CT. However, I have been able to review the reports and all three concur that there is evidence of cellulitis and induration in the right posterior neck and occiput but no drainable fluid suggesting an abscess. IMPRESSION/PLAN: At this point, I think the patient would benefit from being on IV antibiotics as the hospital service is doing. He should get in the shower and wash his neck. General Surgery will re-evaluate him tomorrow but, at this point, I believe any abscess is adequately drained and we should wait and see how he does on IV antibiotics. If there is sign of infection requiring surgery, we would make him n.p.o. and proceed to the operating room.
[2017-04-14] MEDS ORDERED: Insulin GLARgine 100 Unit/mL Syringe SUBQ SCH (21:00)
[2017-04-14] MEDS: 0.9% Sodium Chloride 1,000 ML IV SCH (21:25)
[2017-04-15] VITALS (8 sets, daily range): BP systolic 126–162; BP diastolic 57–78; PULSE 75–85; RESP 16–30; O2SAT 92–96
[2017-04-15] MEDS: Piperacillin-Tazo 3.375 Gm Inj 3.375 GM in Dextrose 5% Minibag Plus 50 ML IV SCH ×2 (01:22→08:05)
[2017-04-15] MEDS: Heparin 5,000 Unit/mL Inj SUBQ SCH ×3 (01:24→16:33)
--- NOTE | 2017-04-15 02:53 | NUR ---
Blood Sugar Pt BS at 2109 was 395. Pt given 30 units lantus and 5 Humulin R. Pt recheck and it was 364. Recheck again was 344. MD knight and ordered pt to be covered with Humulin R
[2017-04-15] MEDS: Insulin Human REGular 300 Unit/3 mL Inj SUBQ SCH ×2 (02:59→08:40)
[2017-04-15 05:52] LABS: BASOPHILS % (AUTO) 0.1 % (0-3); EOSINOPHILS % (AUTO) 0.7 % (0-5); MONOCYTES % (AUTO) 7.8 % (4-12); Mean Corpuscular Hemoglobin 28.5 pg (27.0-35.0); Mean Corpuscular Volume 88.7 fL (81-100); NEUTROPHILS % (AUTO) 79.1 % (40-74); Platelet Count 238 bil/L (150-400)
--- NOTE | 2017-04-15 06:25 | NUR ---
Activity Pt on 3L oxymask; due to non compliance pt with desat into the 80s. Pt also grabs at IV thus Gordon arm constraint put in place. Pt reorients easy but [facility] retention of instructions is a problem.
[2017-04-15] MEDS ORDERED: Insulin GLARgine 100 Unit/mL Syringe SUBQ ONE (08:14)
--- NOTE | 2017-04-15 09:23 | PROG NOTE ---
[address] [address] PROGRESS NOTE PATIENT: GUZMAN BRADLEY : 1945 MR#: [id number] ADMIT: 04/14/2017 JOB ID: [id number] DATE: 04/15/2017 REASON FOR FOLLOWUP: Right neck infection secondary to MRSA in a poorly controlled diabetic. INTERVAL HISTORY: Overnight, the patient has had no fevers, chills, or sweats. He notes that the pain behind his right ear and around his mastoid area has diminished though there is still purulent drainage and erythema and redness. Patient is mildly short of breath lying in bed, but no significant cough. This is about his baseline he states. No nausea, vomiting, and diarrhea. PHYSICAL EXAMINATION: Reveals an afebrile gentleman, temp 37.1, pulse 81, respiratory rate in the upper 20s, blood pressure 159/68, saturating pretty well on 2 L. He is in no acute distress. Eyes without conjunctivitis. His right neck has an extensive area of erythema which extends really from just behind the right ear all the way around to the occiput and all the way down basically to the clavicle and all the way up into the scalp. In the center of all this there is obvious purulence with draining pus from the soft tissues. The lungs are relatively clear. Abdomen obese, soft, nontender. No significant soft tissue process anywhere else. LABORATORIES: Include a white count which is a bit better at 14,000, neutrophils 79%. Creatinine 1.51 which is improved. CPK baseline 95. Micro studies include the MRSA from the nares and Staph aureus now growing from the wound. Blood cultures are negative. Neck ultrasound was done and it shows no drainable abscess, but tissue over the right upper neck consistent with cellulitis which correlates with the physical. IMPRESSION: This patient has a very significant right neck soft tissue infection, which almost certainly is due to methicillin resistant Staphylococcus aureus based on the nasal swab and the preliminary culture results showing Staph aureus. He is not bacteremic nor is he especially toxic, but it is an extensive area of infection in this very poorly controlled diabetic. RECOMMENDATIONS: 1. Will continue with daptomycin at current doses. 2. We await additional susceptibilities on the Staph aureus from the neck, which should be available tomorrow. 3. Probable discharge medicine will be Zyvox if there is no contraindications. No other options including tetracycline or a dose of dalbavancin exists. 4. We discussed frankly with the patient the need to step up his glycemic control if he is to get this infection under control and avoid similar infections in the future.
--- NOTE | 2017-04-15 09:42 | PCM.PNSURG ---
Subjective Date of Service: April 15, 2017 Visit Information: Reason for Visit Hyperglycemia/Confusion Surgery/Surgery Date Post-Op Day # Date of Admission: April 14, 2017 at 07:52 Hospital Day #2 Subjective: Both nursing and the patient report that his right scalp/postauricular abscess drainage has required multiple dressing changes through the night. The patient has not been in the shower. Pain is well-controlled. The patient has arty eaten a breakfast this morning. Postop General: No Complaints Gastrointestinal: Tolerating Oral Feedings Pain Management: IV Push Objective Objective Right scalp/postauricular skin is erythematous and fluctuant measuring approximately 6 x 4 cm with a punctate opening at the superior aspect draining purulence. Vital Sign- Last 8 Hours Date Time Temp Pulse Resp B/P Pulse Ox O2 Delivery O2 Flow Rate FiO2 04/15/17 09:00 36.5 78 25 127/71 95 Nasal Cannula 2.00 04/15/17 08:20 Supplement Oxygen 04/15/17 05:42 Supplement Oxygen 04/15/17 05:02 37.1 81 30 159/68 93 OxyMask 2.00 04/15/17 01:44 36.8 85 28 156/74 92 OxyMask 2.00 Intake and Output- Last 8 Hour 04/15/17 Cumulative From/Thru 07:00 04/14/17 01:37 - 04/15/17 06:24 Intake Total 952 ml 5215 ml Output Total 1800 ml 3060 ml Balance -848 ml 2155 ml Intake Oral 450 ml 2079 ml IV Total 502 ml 3136 ml Output Urine Total 1800 ml 3060 ml # Voids 1 General: Alert, Cooperative, No Acute Distress Lungs: Clear to Auscultation Heart: Regular Rate/Rhythm (distant) Neuro: Normal Speech Catheters: None Result Diagram: 04/15/17 0507 04/15/17 0507 Lab & Micro Results: Hemoglobin A1c 11.1 Assessment & Plan Impression Primary diagnoses: 1. Right scalp/postauricular abscess. HD #2 on IV antibiotics growing MRSA. 2. Poorly controlled diabetes Other chronic conditions: 1. Hyperlipidemia 2. Hypertension 3. Morbid obesity, BMI 42 Problems: Plan 1. The patient will be nothing by mouth after midnight. As the patient has already eaten today he will be reassessed by Dr. Lynn in the morning for probable I&D as there is now a fluctuant cavity to palpation. 2. Continue IV antibiotics. 3. He will get in the shower to irrigate the abscess area today. Pain Management: Intermittent IV analgesic VTE Prophylaxis: Sub-Q Heparin (Unfractionated) Resuscitation Status: CPR: Attempt Resuscitation (discussed and verified with patient) Zane Valerio PA-C April 15, 2017 09:42
[2017-04-15] MEDS: Insulin LISPRO Medium-Dose Scale SUBQ SCH ×3 (11:34→21:33)
[2017-04-15] MEDS: Mupirocin 2% 22 Gm Ointment TOPICAL SCH (13:01)
--- NOTE | 2017-04-15 14:39 | PCM.PNMED ---
Subjective Date of Service April 15, 2017 Subjective Denies any new issues/complaints. no n/v/diarrhea. Exam Vital Signs Vital Sign - Last Date Time Temp Pulse Resp B/P Pulse Ox O2 Delivery O2 Flow Rate FiO2 04/15/17 13:06 36.7 80 30 143/69 96 Nasal Cannula 2.00 Intake and Output 04/14/17 04/14/17 04/15/17 Cumulative From/Thru 15:00 23:00 07:00 04/14/17 01:37 - 04/15/17 06:24 Intake Total 954 ml 2309 ml 952 ml 5215 ml Output Total 1200 ml 1800 ml 3060 ml Balance 954 ml 1109 ml -848 ml 2155 ml Intake Oral 1629 ml 450 ml 2079 ml IV Total 954 ml 680 ml 502 ml 3136 ml Output Urine Total 1200 ml 1800 ml 3060 ml # Voids 1 Exam General: Alert, Oriented X3, Cooperative, No Acute Distress Head: Normal Eyes: PERRLA, EOMI, Scleral Anicteric Nose: Mucous Membr Moist/[employer] Mouth: Mucous Membr Moist/[employer] Neck: Supple Chest & Lungs: Chest Wall Normal, Clear to auscultation bilat Cardiovascular: Regular Rate/Rhythm Abdomen: Non-tender, Non-distended, Normoactive bowel tones, Soft Extremities: Other (1+ pitting edema in LE bilat) Skin: Other (diffusely erythematous area behind the right ear, extending down to the right side of neck with central ulceration draining pus) Neurological: Grossly Neurologically Intact, Normal Speech IVs and Medications Medications Reviewed: Medications were reviewed in detail Lab and Diagnostics Result Diagram: 04/15/17 0507 04/15/17 050 X-Rays, CTs and MRIs Date of Service: 04/14/17147 PROCEDURE: X-RAY CHEST ONE VIEW, PORTABLE ([id number]) IMPRESSION: No acute cardiopulmonary disease. Dictated by: Karthik GREENE Interpreted: An Moise MD on 04/14/2017 at 9:09 Transcribed by: ARELY on 04/14/2017 at 9:11 Approved by: An Moise M.D. on 04/14/2017 at 11:59 Date of Service: 04/14/17147 PROCEDURE: CT CERVICAL SPINE WITHOUT CONTRAST ([id number]) IMPRESSION: 1. Limited examination due to motion artifacts. 2. No definitive fractures in cervical spine. 3. Degenerative changes as described. 4. Soft tissue swelling in the right occipital region. 5. Partial opacification of right mastoids. Recommend clinical correlation for mastoiditis. Dictated by: An Moise M.D. on 04/14/2017 at 8:15 Approved by: An Moise M.D. on 04/14/2017 at 8:19 Date of Service: 04/14/17147 PROCEDURE: CT BRAIN WITHOUT CONTRAST ([id number]) IMPRESSION: 1. No acute intracranial abnormalities. 2. Mild cerebral volume loss and chronic microvascular ischemic changes. 3. Right occipital soft tissue swelling. No significant discrepancy with the shift nurse manager radiology preliminary report. Dictated by: An Moise M.D. on 04/14/2017 at 8:12 Approved by: An Moise M.D. on 04/14/2017 at 8:14 Additional Diagnostics Date of Service: 04/14/17 1311 PROCEDURE: US SOFT TISSUE OF HEAD OR NECK SONOGRAM IMPRESSION: 1. No drainable fluid present to suggest abscess. 2. Marked soft tissue swelling over the posterior right upper neck/mastoid region consistent with cellulitis. Dictated by: An Moise M.D. on 04/14/2017 at 14:42 Approved by: An Moise M.D. on 04/14/2017 at 14:44 Assessment & Plan 71 year old male with a history of insulin dependant diabetes mellitus, hyperlipidemia, and hypertension who presents with possible "falling off his back porch" but also noted to have significant cellulitis and possible abscess of his posterior right neck with significant hyperglycemia and possible acute sepsis on presentation. # Acute sepsis (Tachycardia, tachypnea, leukocytosis, MATTEO, and lactic acidosis) with source likely right neck cellulitis. Present on admission. Clinically improving - Lactic acidosis resolved with IVF - Continue with IV antibiotics - Continue with supportive care # Acute right neck cellulitis, present on admission. Ongoing - Preliminary cultures looking like MRSA - Appreciate ID consult. will followup with recommendations. - Continue with Daptomycin for now - Followup final culture results # Possible right neck abscess. - Imaging does not show any obvious pocket of fluid - Appreciate surgery consult. Will followup with recs - Continue with IV Abx as noted above - Continue with wound care - IV Morphine prn for pain control - Tentative plan for I&D in am # History of diabetes with significant hyperglycemia, present on admission. Improved - Missed insulin regimen over the past week - Continue with home dose Insulin and titrate up for better control - Continue ISS - HgA1C 11.1 # History of hypertension. Currently somewhat hypertensive - Continue to hold home BP medications until certain patient hemodynamically stable and not worsening sepsis # Acute kidney injury, present on admission. Improving - Likely pre-renal azotemia - continue with gentle IVF and followup - Avoid nephrotoxic medications Dispo: 3-4 days GI Prophylaxis: Not indicated VTE Prophylaxis: Sub-Q Heparin (Unfractionated) VTE Mechanical Devices: Intermittant Pneumatic CD Resuscitation Status: CPR: Attempt Resuscitation (discussed and verified with patient) Edinson Herron April 15, 2017 14:39
[2017-04-15] MEDS: 0.9% Sodium Chloride 1,000 ML IV SCH ×2 (15:30→21:50)
[2017-04-15] MEDS: DAPTOmycin Inj 750 MG in 0.9% Sodium Chloride 50 ML IV SCH (15:44)
--- NOTE | 2017-04-15 15:47 | NUR ---
Abscess Care/Safety: Abscessed area behind right ear continues to drain thick yellowish drainage. Area cleaned multiple times throughout shift, changing pad on pillow frequently and applying warm washcloths. Surgery PA suggested shower, however patient was unsteady and complained of dizziness when standing. Used BSC for toileting, instead of ambulating to BR. Yellow non-skid socks on for safety, falls risk sign posted, bed alarm on.
[2017-04-15] MEDS ORDERED: Vancomycin Serum Trough XX ONE (17:30)
--- NOTE | 2017-04-15 17:34 | NUR ---
Confusion: Alerted to room by spouse yelling for help. Patient got OOB, unsteady, took four staff members to assist to chair. Stating "I have to go pee". Tried to reorient patient, explaining he had a catheter to assist with voids. Patient confused and agitated, pushing staff away, grabbing at thao and IV tubing. When asked if he knows where he is, patient shakes head "no", but not speaking. also trying to reorients patient. Four staff members assisted patient back to bed. paged. Addendum: 04/15/17 at 1808 by BRINDA PACHECO RN Discussed with . No new orders at this time.
[2017-04-15] MEDS ORDERED: Insulin GLARgine 100 Unit/mL Syringe SUBQ SCH (21:00)
[2017-04-16] VITALS (13 sets, daily range): BP systolic 132–159; BP diastolic 58–87; PULSE 74–93; RESP 18–23; O2SAT 90–98
[2017-04-16] MEDS: Mupirocin 2% 22 Gm Ointment TOPICAL SCH ×3 (00:09→21:31)
[2017-04-16] MEDS: Heparin 5,000 Unit/mL Inj SUBQ SCH ×3 (00:19→16:56)
[2017-04-16] MEDS: 0.9% Sodium Chloride 1,000 ML IV SCH (05:31)
--- NOTE | 2017-04-16 07:01 | NUR ---
pain/confusion: pt c/o right head/behind the ear pain, pt medicated with prn meds, able to report relief. pt slept most of shift and appropriatethe mojority of shift. pt woke up around 0500, pulled out IV, pulled off tele, pulled of pulse ox, and pulling at thao. attempting OOB. pt reoriented easily and stated that felt embarrassed he keeps pulling out his IV. IV restarted, IVF infusing per orders. has been NPO since Midnight for I&D in am. pt sleeping at this time. will continue to monitor.
[2017-04-16 08:05] LABS: Mean Corpuscular Hemoglobin 28.1 pg (27.0-35.0); Mean Corpuscular Volume 85.8 fL (81-100)
[2017-04-16] MEDS: Insulin LISPRO Medium-Dose Scale SUBQ SCH ×4 (09:22→21:33)
--- NOTE | 2017-04-16 10:17 | PROG NOTE ---
[address] [address] PROGRESS NOTE PATIENT: GUZMAN BRADLEY : 1945 MR#: [id number] ADMIT: 04/14/2017 JOB ID: [id number] DATE: 04/16/2017 REASON FOR FOLLOWUP: Extensive right neck soft tissue infection. INTERVAL HISTORY: The patient reports that the pain and inflammation of his right neck have diminished. He does not have any fever or chills, though he does have some pressure in that area still. No cough, shortness of breath, or new GI symptoms. Overnight, there was a period of time in the shutdown coordinator hours when the patient was confusional, but that is resolved. PHYSICAL EXAMINATION: Reveals an afebrile gentleman, temperature 36.5. He has been afebrile throughout this admission. Pulse 75, respiratory rate 19, blood pressure 153/67, saturating well on 4 L. The patient is awake, though a bit lethargic this morning. The extent of the inflammation of his neck is truly staggering. It extends from really just under the ear, all the way across to the midline, all the way up into the scalp, and all the way down basically to the clavicle. This is a truly huge purplish inflammatory infection, which is gradually less red and less tender, and there is less drainage from the central necrotic area. Lungs are distant, but clear. Abdomen is obese, soft, nontender. No other new skin rash. LABORATORY DATA: Labs include white count down to 13,000 from 19,000. Creatinine 1.29, which is steadily improving. Procalcitonin 0.29, which is slightly better than admission. Urinalysis has 6-10 white cells. We have a positive MRSA abscess culture. This organism is resistant completely to clindamycin. IMPRESSION: 1. The patient seems to be evolving a more localized abscess-like fluid collection, and for that reason, General Surgery will be doing an incision and drainage later today. From our point of view, the patient is doing reasonably well on daptomycin, and will continue with IV daptomycin until the patient is ready for discharge. 2. Outpatient antibiotics here could include Zyvox, which might be the simplest option, in a dose of 600 b.i.d. for about 10 days after he leaves. He does not have evidence of thrombocytopenia, nor do we see any significant drug interactions. 3. For now; however, I would keep him on daptomycin as he stabilizes somewhat. 4. Also note that I will be out of town starting this evening, and continuing through my return on the morning of April 21, which is this coming Thursday. I can be reached by e-mail, cell phone, or text message as needed during that time.
[2017-04-16] MEDS ORDERED: Lactated Ringer's 1,000 ML IV ONE (10:30)
--- NOTE | 2017-04-16 10:38 | PCM.HPANE ---
Patient Data Date of Service: April 16, 2017 Surgeon Admitting Provider:Edinson Herron Attending Provider:Edinson Herron Primary Care Physician:Graeme Steward MD Other Provider: Reason for Visit Hyperglycemia/Confusion Ht/WT & BMI Height (Feet): 6 Height (Inches): 0.00 Weight (Kilograms): 137.000 Body Mass Index 41.98 Allergies Coded Allergies: No Known Allergies (Unverified Allergy, Unknown, 04/14/17) Past Anesthesia History Anesthesia History: Denies:: Abnormal Airway Diabetes History Hx Diabetes?: Yes (10 yrs) Current Bedside Blood Glucose: 265 MRSA MRSA: No Medications Reported Medications Aspirin 81 Mg Rgekkd01 Mg PO DAILY Ref 0 04/14/17 Simvastatin 80 Mg Ylxrff34 Mg PO HS 30 Days Ref 0 04/03/15 Insulin Aspart (NovoLOG U-100 Pen)100 Unit/Ml Insuln.pen0-20 Units SUBQ TIDWM PRN sliding scale 04/03/15 Lisinopril 40 Mg Bhklei15 Mg PO BID 30 Days Ref 0 04/03/15 Insulin Glargine (Lantus U100 Solostar Insulin Pen)100 Unit/1 Ml Insuln.pen45 Unit SUBQ HS #1 PENINJ Ref 0 04/03/15 Glyburide 5 Mg Tab10 Mg PO BIDAC 30 Days Ref 0 04/03/15 Amlodipine 2.5 Mg Tablet5 Mg PO QPM 30 Days Ref 0 04/03/15 Amlodipine 2.5 Mg Tablet2.5 Mg PO AM 30 Days Ref 0 04/03/15 Discontinued Reported Medications Aspirin (Aspir-Low)81 Mg Tablet.dr81 Mg PO DAILY #1 BOTTLE Ref 0 04/03/15 History History of ENT Problems?: No HEENT History: Denies:: Abnormal Airway Denture Type: None Teeth Condition: Within Normal Limits Hx of Heart Problems?: No Cardiovascular History: Positive for:: Hypertension Denies:: Congestive Heart Failure Hx of Respiratory Problem?: No Respiratory History: Denies:: Asthma Tuberculosis Hx Neurologic Problems?: No Hx of GI Problems?: No Hx of Problems?: No Hx Musculoskeletal Problems?: No Hx of Psycho/Social Problems?: No Hx Surgeries?: No Other History: Denies:: Cancer Thyroid Disease History Blood Transfusions: Positive for:: Accept Blood Products? Denies:: Blood Transfusions Hx Diabetes: Yes (10 yrs)Bedside Blood Glucose: 265 Hx Alcohol Use: NoHx Substance Use: No Smoking Status: Never Smoker Have You Smoked inLast 12 mo: No Stop/Bang Treated for Sleep Apnea?: No Do You Have a CPAP Machine?: No S-Snoring: Do You Snore Loudly: Yes T-Tired: feel tired, fatigued: Yes O-Obsered: Observed not breath: No P-Blood Pressure: treated: Yes B- Body Mass Index > 35 kg/m2: Yes A- Age over 50: Yes N- Neck Large Circumference: Yes G- Gender Male: Yes BRENT Total Score: 7 Risk Assessment Category Category 1A: Patient has history of documented sleep apnea, and HAS NOT received any narcotic, sedative or anesthesia administration during this stay. Category 1B: Patient has history of documented sleep apnea, and HAS received any narcotic , sedative or anesthesia administration during this stay Category 2: Patient has SUSPECTED Obstructive Sleep Apnea, and HAS received any narcotic , sedative or anesthesia administration during this stay. Category 3: Patient has SUSPECTED Obstructive Sleep Apnea and HAS NOT received narcotic, sedative or anesthesia administration during this stay. Category 4: Outpatient in Procedural Areas with known sleep apnea or who screen positive for High Risk via the STOP/BANG questionnaire. Exam Exam Vital Signs Vital Signs Date Time Temp Pulse Resp B/P Pulse Ox O2 Delivery O2 Flow Rate FiO2 04/16/17 09:04 36.5 75 19 153/67 95 Nasal Cannula 4.00 04/16/17 07:30 Supplement Oxygen 04/16/17 05:46 79 04/16/17 05:11 36.3 84 18 159/78 96 Nasal Cannula 4.00 General Appearance: Alert, Oriented X3, Cooperative, No Acute Distress HEENT/AIRWAY: MP 2 Lungs: Clear to Auscultation Heart: Regular Rate/Rhythm (distant), Murmur (3/6 at RUSB) Meds/Labs/Diagnostics Admission Meds Current Medications Insulin Glargine (Lantus Insulin Inj) 45 unit HS SUBQ Last administered on 04/15 21:32; Start 04/15/17 at 21:00 Insulin Human Lispro (HumaLOG Insulin Inj) Nutritional Dose recomm... [facility] SUBQ Last administered on 04/16/17 09:22; Start 04/15/17 at 12:00 Bedside Blood Glucose: 265 Labs Test 04/14/17 01:31 04/14/17 02:50 04/14/17 08:50 04/14/17 13:05 Erythrocyte Sedimentation Rate 63mm/hr (0-30) Prothrombin Time 10.0sec (8.1-12.5) Prothromb Time International Ratio 0.94ratio Activated Partial Thromboplast Time 25.2sec (22.8-33.0) Hemoglobin A1c 11.1% (4.8-5.6) Phosphorus Level 3.2mg/dL (2.5-4.9) Total Bilirubin 0.3mg/dL (0.0-1.2) Aspartate Amino Transf (AST/SGOT) 13U/L (0-50) Alanine Aminotransferase (ALT/SGPT) 11U/L (0-44) Alkaline Phosphatase 118U/L (25-160) Pro-B-Type Natriuretic Peptide 731pg/mL (0-376) Total Protein 7.1g/dL (6.4-8.4) Albumin 3.1g/dL (3.4-5.0) Ketones Small (Negative) Urine Color Yellow (YELLOW) Urine Appearance Clear (CLEAR,HAZY) Urine pH 5.0 (5.0-8.0) Urine Specific [place] 1.022 (1.003-1.035) Urine Protein 30mg/dL (NEG,TRACE) Urine Glucose (UA) >1000mg/dL (NEGATIVE) Urine Ketones Negativemg/dL (NEGATIVE) Urine Occult Blood Small (NEGATIVE) Urine Nitrite Negative (NEGATIVE) Urine Bilirubin Negative (NEGATIVE) Urine Urobilinogen Normalmg/dL (NORMAL) Urine Leukocyte Esterase Negative (NEGATIVE) Urine RBC 0-2/hpf (0-2) Urine WBC 6-10/hpf (0-5) Urine Epithelial Cells Few/hpf (NONE-MOD) Urine Crystals None seen (NONE SEEN) Urine Bacteria None/hpf (NONE-FEW) Urine Hyaline Casts None/lpf (NONE) Urine Granular Casts None seen (NONE SEEN) Urine Waxy Casts None seen (NONE SEEN) Urine Red Blood Cell Casts None seen (NONE SEEN) Urine White Blood Cell Casts None seen (NONE SEEN) Urine Mucus Present (None Seen) Urine Trichomonas None seen (NONE SEEN) Urine Yeast None (NONE SEEN) Urine Culture Reflexed Indicated Lactic Acid Level 1.5mmol/L (0.4-2.0) Magnesium Level 1.9mg/dL (1.6-2.6) Test 04/15/17 05:07 04/16/17 07:45 Neutrophils (%) (Auto) 79.1% (40-74) Lymphocytes (%) (Auto) 11.7% (14-46) Monocytes (%) (Auto) 7.8% (4-12) Eosinophils (%) (Auto) 0.7% (0-5) Basophils (%) (Auto) 0.1% (0-3) Total Creatine Kinase 95U/L (21-232) White Blood Count 13.5th/mm3 (3.8-10.1) Red Blood Count 4.38mil/mm3 (4.40-5.80) Hemoglobin 12.3g/dL (13.8-17.2) Hematocrit 37.6% (41.0-50.0) Mean Corpuscular Volume 85.8fL (81-100) Mean Corpuscular Hemoglobin 28.1pg (27.0-35.0) Mean Corpuscular Hemoglobin Concent 32.7% (32.0-37.0) Red Cell Distribution Width 12.4% (12.3-15.4) Platelet Count 266bil/L (150-400) Sodium Level 143mEq/L (134-144) Potassium Level 5.1mEq/L (3.5-5.2) Chloride Level 105mEq/L (97-108) Carbon Dioxide Level 28mmol/L (18-29) Blood Urea Nitrogen 29mg/dL (8-27) Creatinine 1.29mg/dL (0.76-1.27) Estimat Glomerular Filtration Rate 58mL/min (>59) Glucose Level 294mg/dL (60-99) Calcium Level 8.8mg/dL (8.5-10.1) Procalcitonin 0.29ng/mL (0.00-0.08) Plan Impression Patient chart reviewed, patient interviewed and anesthestic plan with risks, benefits, and alternatives discussed, and informed consent obtained. ASA Physical Status: ASA3 Severe Disease Anesthetic Plan: MAC Bene/Risks/Altern/Consents: Yes HP Complete Prior to Induction: Yes Mack Cunningham MD April 16, 2017 10:38
[2017-04-16] MEDS ORDERED: Lactated Ringer's 1,000 ML IV SCH (10:44)
[2017-04-16] MEDS ORDERED: Lactated Ringer's 500 ML IV PRN (10:44)
[2017-04-16] MEDS ORDERED: Phenylephrine 10,000 mCg/mL Inj IVPUSH PRN (10:45)
[2017-04-16] MEDS ORDERED: Dexamethasone 4 mg/mL Inj IVPUSH PRN (10:45)
[2017-04-16] MEDS ORDERED: MetoCLOpramide 5 mg/mL 2 mL Inj IVPUSH PRN (10:45)
[2017-04-16] MEDS ORDERED: HYDROmorphone 1 mg/mL Inj IVPUSH PRN (10:45)
[2017-04-16] MEDS ORDERED: Ondansetron 2 mg/mL 2 mL Inj IVPUSH PRN (10:45)
[2017-04-16] MEDS ORDERED: EPHEDrine Sulfate 50 mg/mL Inj IVPUSH PRN (10:45)
[2017-04-16] MEDS ORDERED: fentaNYL-PF 50 mCg/mL 2 mL Inj IVPUSH PRN (10:45)
[2017-04-16] MEDS ORDERED: Labetalol 5 mg/mL 4 mL Inj IV PRN (10:45)
[2017-04-16] MEDS ORDERED: Bupivacaine-MPF 0.5% W/EPI 30 mL Inj INFILTRATE ONE (10:59)
--- NOTE | 2017-04-16 11:15 | PCM.ANEP1 ---
Post Anesthesia PACU Phase 1 Assessment Date of Service: April 16, 2017 Vital Signs Vital Signs Date Time Temp Pulse Resp B/P Pulse Ox O2 Delivery O2 Flow Rate FiO2 04/16/17 09:04 36.5 75 19 153/67 95 Nasal Cannula 4.00 04/16/17 07:30 Supplement Oxygen 04/16/17 05:46 79 04/16/17 05:11 36.3 84 18 159/78 96 Nasal Cannula 4.00 post op : 153/62 83 95% 17 36.1 Anesthetic Administered: MAC Level of Alertness: Sleepy, easy to arouse Pain: Yes Pain Scale Score: 8 Nausea or Vomiting: No CV Function & Hydration Stable: Yes Airway Device: Oxygen Delivery: Simple Mask Lungs: Clear to Auscultation PACU Phase 2 Assessment Complications: No Patient Instructions Provided: Yes Mack Cunningham MD April 16, 2017 11:15
--- NOTE | 2017-04-16 13:10 | OP ---
[address] [address] OPERATIVE REPORT PATIENT: GUZMAN BRADLEY : 1945 MR#: [id number] ADMIT: 04/14/2017 JOB ID: [id number] DATE OF SURGERY: 04/16/2017 PREOPERATIVE DIAGNOSIS(ES): Right postauricular soft tissue infection. POSTOPERATIVE DIAGNOSIS(ES): Right postauricular soft tissue infection. SURGEON: Aly Lynn M.D. PROCEDURES: Incision and drainage with debridement of right posterior auricular soft tissue abscess. INDICATIONS: A 71-year-old man who was admitted to the hospital with some medical issues and with a several week old scalp/neck infection right behind his right ear. This was draining at the time. He was admitted. Since that time, he has been on IV antibiotics but his cellulitis has not particularly improved. As well, despite wound care orders, his wound is not being cleaned out sufficiently and he is, therefore, brought to the operating room for further incision and drainage and some debridement. FINDINGS: See below for details. PROCEDURE: The patient was brought to the operating room. The SCOAP protocol was followed. He was on therapeutic antibiotics. Surgical time-out was performed. The right neck and posterior scalp were prepped and draped in a sterile fashion. There was visible pus in the wound. I placed a Belle clamp in the wound after instilling local anesthetic, and he received intravenous sedation. I now unroofed this wound and excised a piece of skin so that it would be easier for nursing to keep it clean. I explored the subcutaneous tissues and there was no significant tracking into the areas of indurated cellulitis. We obtained hemostasis with cautery. I irrigated out the wound and packed it. Hemostasis was good. Adequate wound care will be essential to facilitate healing and prevent progression of this infection. I will discuss this with nursing staff.
[2017-04-16] MEDS ORDERED: fentaNYL-PF 50 mCg/mL 2 mL Inj ONE (13:22)
--- NOTE | 2017-04-16 13:52 | PCM.PNMED ---
Subjective Date of Service April 16, 2017 Subjective Denies any new issues/complaints. no n/v/diarrhea. Exam Vital Signs Vital Sign - Last Date Time Temp Pulse Resp B/P Pulse Ox O2 Delivery O2 Flow Rate FiO2 04/16/17 12:40 36.5 86 18 145/71 94 Nasal Cannula 4.00 Intake and Output 04/15/17 04/15/17 04/16/17 Cumulative From/Thru 15:00 23:00 07:00 04/14/17 01:37 - 04/16/17 06:10 Intake Total 1596 ml 969 ml 7780 ml Output Total 1800 ml 1850 ml 6710 ml Balance -204 ml -881 ml 1070 ml Intake Oral 908 ml 200 ml 3187 ml IV Total 688 ml 769 ml 4593 ml Output Urine Total 1800 ml 1850 ml 6710 ml # Voids 1 # Bowel Movements 1 1 Exam General: Alert, Oriented X3, Cooperative, No Acute Distress Head: Normal Eyes: PERRLA, EOMI, Scleral Anicteric Nose: Mucous Membr Moist/[place] Mouth: Mucous Membr Moist/[place] Neck: Supple Chest & Lungs: Chest Wall Normal, Clear to auscultation bilat Cardiovascular: Regular Rate/Rhythm Abdomen: Non-tender, Non-distended, Normoactive bowel tones, Soft Extremities: Other (1+ pitting edema in LE bilat) Skin: Other (diffusely erythematous area behind the right ear, extending down to the right side of neck with central ulceration draining pus) Neurological: Grossly Neurologically Intact, Normal Speech IVs and Medications Medications Reviewed: Medications were reviewed in detail Lab and Diagnostics Result Diagram: 04/16/17 0745 04/16/17 0745 X-Rays, CTs and MRIs Date of Service: 04/14/17147 PROCEDURE: X-RAY CHEST ONE VIEW, PORTABLE ([id number]) IMPRESSION: No acute cardiopulmonary disease. Dictated by: Karthik GREENE Interpreted: An Moise MD on 04/14/2017 at 9:09 Transcribed by: ARELY on 04/14/2017 at 9:11 Approved by: An Moise M.D. on 04/14/2017 at 11:59 Date of Service: 04/14/17147 PROCEDURE: CT CERVICAL SPINE WITHOUT CONTRAST ([id number]) IMPRESSION: 1. Limited examination due to motion artifacts. 2. No definitive fractures in cervical spine. 3. Degenerative changes as described. 4. Soft tissue swelling in the right occipital region. 5. Partial opacification of right mastoids. Recommend clinical correlation for mastoiditis. Dictated by: An Moise M.D. on 04/14/2017 at 8:15 Approved by: An Moise M.D. on 04/14/2017 at 8:19 Date of Service: 04/14/17147 PROCEDURE: CT BRAIN WITHOUT CONTRAST ([id number]) IMPRESSION: 1. No acute intracranial abnormalities. 2. Mild cerebral volume loss and chronic microvascular ischemic changes. 3. Right occipital soft tissue swelling. No significant discrepancy with the power and recovery shift engineer radiology preliminary report. Dictated by: An Moise M.D. on 04/14/2017 at 8:12 Approved by: An Moise M.D. on 04/14/2017 at 8:14 Additional Diagnostics Date of Service: 04/14/17 1311 PROCEDURE: US SOFT TISSUE OF HEAD OR NECK SONOGRAM IMPRESSION: 1. No drainable fluid present to suggest abscess. 2. Marked soft tissue swelling over the posterior right upper neck/mastoid region consistent with cellulitis. Dictated by: An Moise M.D. on 04/14/2017 at 14:42 Approved by: An Moise M.D. on 04/14/2017 at 14:44 Assessment & Plan 71 year old male with a history of insulin dependant diabetes mellitus, hyperlipidemia, and hypertension who presents with possible "falling off his back porch" but also noted to have significant cellulitis and possible abscess of his posterior right neck with significant hyperglycemia and possible acute sepsis on presentation. # Acute sepsis (Tachycardia, tachypnea, leukocytosis, MATTEO, and lactic acidosis) with source likely right neck cellulitis. Present on admission. Clinically improving - Lactic acidosis resolved with IVF - Continue with IV antibiotics - Continue with supportive care # Acute right neck cellulitis with abscess, present on admission. Ongoing - Cultures growing MRSA - Post incision and drainage with debridement of right posterior auricular soft tissue abscess on 04/16 - Appreciate ID and surgery consults. will followup with recommendations. - Continue with Daptomycin for now - Outpatient antibiotics Zyvox 600 b.i.d. for about 10 days after he leaves. - Continue with wound care - IV Morphine prn for pain control # History of diabetes with significant hyperglycemia, present on admission. Improved - Missed insulin regimen over the past week - Continue with home dose Lantus and titrate up for better control - Continue ISS - HgA1C 11.1 # History of hypertension. Currently somewhat hypertensive - Continue to hold home BP medications until certain patient hemodynamically stable and not worsening sepsis # Acute kidney injury, present on admission. Improving - Likely pre-renal azotemia - continue with gentle IVF and followup - Avoid nephrotoxic medications Dispo: 2-3 days GI Prophylaxis: Not indicated VTE Prophylaxis: Sub-Q Heparin (Unfractionated) VTE Mechanical Devices: Intermittant Pneumatic CD Resuscitation Status: CPR: Attempt Resuscitation (discussed and verified with patient) Edinson Herron April 16, 2017 13:52 patient) Edinson Herron April 16, 2017 13:52
[2017-04-16] MEDS: DAPTOmycin Inj 750 MG in 0.9% Sodium Chloride 50 ML IV SCH (16:05)
[2017-04-16] MEDS: Insulin GLARgine 100 Unit/mL Syringe SUBQ SCH (21:32)
[2017-04-17] MEDS: Heparin 5,000 Unit/mL Inj SUBQ SCH ×3 (00:14→17:39)
[2017-04-17 01:38] VITALS: BP 154/74; PULSE 86; RESP 18; O2SAT 97
[2017-04-17] MEDS: 0.9% Sodium Chloride 1,000 ML IV SCH ×2 (03:06→15:50)
--- NOTE | 2017-04-17 04:43 | NUR ---
Wound dressing/sleepy wound dressing changed per order during this shift. pt has been sleepiness, but arousable easily and back to sleep right away. pt A&O X3 during this night. BS 316 at HS. Lantus and sliding scale lispro administered per protocol. BS at 0300 was 232. will continue to monitor.
[2017-04-17 05:14] VITALS: BP 134/85; PULSE 77; RESP 18; O2SAT 98
[2017-04-17 06:37] LABS: BASOPHILS % (AUTO) 0.2 % (0-3); EOSINOPHILS % (AUTO) 2.3 % (0-5); MONOCYTES % (AUTO) 6.1 % (4-12); Mean Corpuscular Hemoglobin 28.5 pg (27.0-35.0); NEUTROPHILS % (AUTO) 76.8 % (40-74); Platelet Count 265 bil/L (150-400)
[2017-04-17] MEDS ORDERED: Insulin GLARgine 100 Unit/mL Syringe SUBQ SCH (08:30)
[2017-04-17] MEDS: Insulin LISPRO Medium-Dose Scale SUBQ SCH ×4 (08:48→21:58)
[2017-04-17] MEDS: Mupirocin 2% 22 Gm Ointment TOPICAL SCH ×2 (08:51→21:56)
--- NOTE | 2017-04-17 09:22 | NUR ---
NOC Note per report & pt description Wound care dressing changed 2x during NOC shift. Pt received shower on 04/16 around 1830. Plan to continue WC per MD orders.
--- NOTE | 2017-04-17 10:43 | PROG NOTE ---
[address] [address] PROGRESS NOTE PATIENT: GUZMAN BRADLEY : 1945 MR#: [id number] ADMIT: 04/14/2017 JOB ID: [id number] DATE: 04/17/2017 SUBJECTIVE: He is postop day one debridement. He is afebrile, stable vital signs. His white count is down to 11.9. Examination of his wound shows that the packing from yesterday morning's surgery is still in place. The patient tells me that he has not been in the shower. I have removed the packing and washed out the wound. Erythema and induration from the preceding several days is unchanged. IMPRESSION AND PLAN: The patient's soft tissue infection healing is hindered by inadequate wound care. I have reviewed the current orders and plan for wound care with the charge nurse.
--- NOTE | 2017-04-17 13:04 | PCM.PNMED ---
Subjective Date of Service April 17, 2017 Subjective Denies any new issues/complaints. no n/v/diarrhea. Exam Vital Signs Vital Sign - Last Date Time Temp Pulse Resp B/P Pulse Ox O2 Delivery O2 Flow Rate FiO2 04/17/17 09:00 Supplement Oxygen 04/17/17 05:14 36.7 77 18 134/85 98 4.00 Intake and Output 04/16/17 04/16/17 04/17/17 Cumulative From/Thru 15:00 23:00 07:00 04/14/17 01:37 - 04/17/17 06:27 Intake Total 494 ml 888 ml 300 ml 9462 ml Output Total 1550 ml 725 ml 8985 ml Balance 494 ml -662 ml -425 ml 477 ml Intake Oral 888 ml 300 ml 4375 ml IV Total 494 ml 5087 ml Output Urine Total 1550 ml 725 ml 8985 ml # Voids 1 # Bowel Movements 1 Exam General: Alert, Cooperative, No Acute Distress Head: Normal Eyes: PERRLA, EOMI, Scleral Anicteric Nose: Mucous Membr Moist/[place] Mouth: Mucous Membr Moist/[place] Neck: Supple Chest & Lungs: Chest Wall Normal, Clear to auscultation bilat Cardiovascular: Regular Rate/Rhythm Abdomen: Non-tender, Non-distended, Normoactive bowel tones, Soft Extremities: Other (1+ pitting edema in LE bilat) Skin: Other (diffusely erythematous area behind the right ear, extending down to the right side of neck with central ulceration draining pus) Neurological: Grossly Neurologically Intact, Normal Speech IVs and Medications Medications Reviewed: Medications were reviewed in detail Lab and Diagnostics Result Diagram: 04/17/1710 04/17/17 0610 X-Rays, CTs and MRIs Date of Service: 04/14/17 0148 PROCEDURE: X-RAY CHEST ONE VIEW, PORTABLE ([id number]) IMPRESSION: No acute cardiopulmonary disease. Dictated by: Karthik Molina Lila Interpreted: An Moise MD on 04/14/2017 at 9:09 Transcribed by: ARELY on 04/14/2017 at 9:11 Approved by: An Moise M.D. on 04/14/2017 at 11:59 Date of Service: 04/14/17147 PROCEDURE: CT CERVICAL SPINE WITHOUT CONTRAST ([id number]) IMPRESSION: 1. Limited examination due to motion artifacts. 2. No definitive fractures in cervical spine. 3. Degenerative changes as described. 4. Soft tissue swelling in the right occipital region. 5. Partial opacification of right mastoids. Recommend clinical correlation for mastoiditis. Dictated by: An Moise M.D. on 04/14/2017 at 8:15 Approved by: An Moise M.D. on 04/14/2017 at 8:19 Date of Service: 04/14/17147 PROCEDURE: CT BRAIN WITHOUT CONTRAST ([id number]) IMPRESSION: 1. No acute intracranial abnormalities. 2. Mild cerebral volume loss and chronic microvascular ischemic changes. 3. Right occipital soft tissue swelling. No significant discrepancy with the manufacturing supervisor 2nd shift radiology preliminary report. Dictated by: An Moise M.D. on 04/14/2017 at 8:12 Approved by: An Moise M.D. on 04/14/2017 at 8:14 Additional Diagnostics Date of Service: 04/14/17 1311 PROCEDURE: US SOFT TISSUE OF HEAD OR NECK SONOGRAM IMPRESSION: 1. No drainable fluid present to suggest abscess. 2. Marked soft tissue swelling over the posterior right upper neck/mastoid region consistent with cellulitis. Dictated by: An Moise M.D. on 04/14/2017 at 14:42 Approved by: An Moise M.D. on 04/14/2017 at 14:44 Assessment & Plan 71 year old male with a history of insulin dependant diabetes mellitus, hyperlipidemia, and hypertension who presents with possible "falling off his back porch" but also noted to have significant cellulitis and possible abscess of his posterior right neck with significant hyperglycemia and possible acute sepsis on presentation. # Acute sepsis (Tachycardia, tachypnea, leukocytosis, MATTEO, and lactic acidosis) with source likely right neck cellulitis. Present on admission. Clinically improving - Lactic acidosis resolved with IVF - Continue with IV antibiotics - Continue with supportive care # Acute right neck cellulitis with abscess, present on admission. Ongoing - Cultures growing MRSA - Post incision and drainage with debridement of right posterior auricular soft tissue abscess on 04/16 - Appreciate ID and surgery consults. will followup with recommendations. - Continue with Daptomycin for now - Outpatient antibiotics Zyvox 600 b.i.d. for about 10 days after he leaves. - Continue with wound care - IV Morphine prn for pain control # History of diabetes with significant hyperglycemia, present on admission. Poorly controlled - Missed insulin regimen over the past week - Increased home dose Lantus to 50 units qhs and add additional 5 units daily. Continue to titrate up for better control - Continue ISS - HgA1C 11.1 # History of hypertension. Currently somewhat hypertensive - Continue to hold home BP medications until certain patient hemodynamically stable and not worsening sepsis # Acute kidney injury, present on admission. Resolved - Likely pre-renal azotemia - continue with gentle IVF and followup - Avoid nephrotoxic medications Dispo: will continue with IV antibiotics for at least 2 more days in the hospital GI Prophylaxis: Not indicated VTE Prophylaxis: Sub-Q Heparin (Unfractionated) VTE Mechanical Devices: Intermittant Pneumatic CD Resuscitation Status: CPR: Attempt Resuscitation (discussed and verified with patient) Edinson Herron April 17, 2017 13:04
[2017-04-17] MEDS ORDERED: Insulin GLARgine 100 Unit/mL Syringe SUBQ ONE (13:10)
--- NOTE | 2017-04-17 14:03 | NUR ---
Social Work: Continued d/c planning Data: Pt is on day 3 of hospitalization. EMR reviewed, pt discussed in rounds. MD states pt will likely d/c on Thursday after completing IVABX. Pt will d/c on PO ABX per MD. MD states no HH need. No further d/c planning needs. MAIL HANDLER EQUIPMENT OPERATOR will continue to follow if needs arise. Assessment: Pt who is independent at baseline. Plan: Pt will d/c home via POV when medically stable. No further d/c planning needs. MAIL HANDLER EQUIPMENT OPERATOR will continue to follow if needs arise. TERRANCE Bojorquez
[2017-04-17 15:13] VITALS: BP 139/70; PULSE 91; RESP 22; O2SAT 95
[2017-04-17] MEDS: DAPTOmycin Inj 750 MG in 0.9% Sodium Chloride 50 ML IV SCH (15:51)
--- NOTE | 2017-04-17 18:31 | NUR ---
DAILY WOUND CARE/O2 needs Pt took shower around 2PM, pt able to tolerate activity on RA for short period of time but desat'd down into low 80's, pt SOB with activity. Placed back on 2L and sats returning into the low 90's and pt reports breathing is back at ease. Irrigation, washing, and dressing change (per orders) 2x during shift with an additional time by wound care. Dressing was not applied prior to shower. Abscess open with [id number]-[id number] purulent fluid draining throughout the day. Pain reported at 5/10 at beginning of shift and reduced to 0 after morphine administration. Minimal pain continued for rest of shift. Will report to NOC shift.
[2017-04-17 19:50] VITALS: BP 160/72; PULSE 84; RESP 20; O2SAT 96
[2017-04-17] MEDS: Insulin GLARgine 100 Unit/mL Syringe SUBQ SCH (21:56)
[2017-04-18] MEDS: Heparin 5,000 Unit/mL Inj SUBQ SCH ×3 (00:39→16:49)
--- NOTE | 2017-04-18 02:41 | NUR ---
Wound Management/Pain Abscess on head open with green/yellow/brown purulent fluid draining. Cleaned and changed dressing per orders. Will continue to monitor head as the dressing has fallen off several times. Have asked pt if he would like his dressing changed throughout shift for PRN changes and has declined. Pt complained of pain from abscess as a /. Pain med given per eMAR. On reassessment, pt showed no s/sx of pain as he was resting comfortably. Care ongoing.
[2017-04-18 05:42] VITALS: BP 149/68; PULSE 74; RESP 20; O2SAT 96
[2017-04-18] MEDS: 0.9% Sodium Chloride 1,000 ML IV SCH ×2 (05:59→21:43)
[2017-04-18 06:07] LABS: Mean Corpuscular Hemoglobin 28.1 pg (27.0-35.0); Mean Corpuscular Volume 87.8 fL (81-100)
--- NOTE | 2017-04-18 06:46 | NUR ---
Wound care/ Dressing change Patient head would flushed with NS then cleaned with soap and water. Placed 4x4 dressing then wrapped with curlex at 0545.
[2017-04-18] MEDS: Insulin LISPRO Medium-Dose Scale SUBQ SCH ×4 (07:50→21:23)
[2017-04-18] MEDS: Mupirocin 2% 22 Gm Ointment TOPICAL SCH ×2 (08:53→21:24)
[2017-04-18] MEDS: Insulin GLARgine 100 Unit/mL Syringe SUBQ SCH ×2 (08:55→21:19)
--- NOTE | 2017-04-18 09:30 | NUR ---
CAS signed TERRANCE Bojorquez
--- NOTE | 2017-04-18 10:00 | PROG NOTE ---
[address] [address] PROGRESS NOTE PATIENT: GUZMAN BRADLEY : 1945 MR#: [id number] ADMIT: 04/14/2017 JOB ID: [id number] DATE: 04/18/2017 SUBJECTIVE: The patient is seen in followup for his right postauricular abscess. The patient tells me he is feeling great. He denies any significant pain. OBJECTIVE: He has remained afebrile and hemodynamically normal. This morning, he is alert and oriented and comfortable. His wound is inspected. It is open to the air. There is a small area of debridement with some fibrinous exudate but no elsie pus. The surrounding skin looks somewhat beat up and ecchymotic but there is no evidence of undrained collection. His white blood cell count remains the same at 12. Hematocrit is the same at 38.1. ASSESSMENT AND PLAN: This is a 71-year-old poorly controlled diabetic with a right postauricular wound. I recommend ongoing wound care. I anticipate he could probably go home early next week with plans for further management [facility].
--- NOTE | 2017-04-18 12:08 | NUR ---
NUTRITION ASSESSMENT: ASSESS:71 YO male admitted with hyperglycemia, confusion, neck abscess and drainage. Apparently he has not been taking insulin for the past week after running out of his prescription and missing his appointment with the piano and organ refinisher last . Diabetes education provided 04/17, with referral placed to outpatient diabetes education program. Bull Chain Operator requested to assess right mastoid process wound, which patient reports is approx. 2 weeks in duration. Tissue behind ear is hard and indurated for approx 7 cm around a small 0.5 cm purulent draining ulcer, drainage is sosa and foul smelling. Surgery recommending discharge early next week, with followup at the [facility]. PMHx:Type 2 diabetes, dyslipidemia, HTN, obesity. DIET:Heart healthy consistent carb. PO intake 50 - 100% trays. LABS: Reviewed. Glu 187, A1c 11.1. MEDICATIONS: Reviewed. Insulin. NUTRITION FOCUSED PHYSICAL ASSESSMENT: GI symptoms / stool: BM x 1 today.Enrrique: 19. Skin Integrity: Neck abscess. ANTHROPOMETRICS: Current Wt: 132.4 kg BMI: 39.0 kg/m2.Admit weight: 127.27 kg IBW: 80.9 kg (157% IBW) ESTIMATED NEEDS (CLASS II OBESITY, WOUND): Calories: 1780 - 2023 kcal (22 - 25 kcal / kg IBW) Protein: 146 - 162 g protein (1.8 - 2.0 g / kg IBW) Fluid: Approx. 3182 mL (25 mL / kg BW) NUTRITION DIAGNOSIS: 1)Increased nutrient needs related to increased demand for nutrients, as evidenced by neck abscess which will require ongoing wound management at the [facility] following discharge. INTERVENTION: 1) In the event PO declines, will add supplements to trays. MONITOR/EVALUATE: Diet tolerance, PO intake, labs, GI/nutrition status. Follow up per moderate nutrition risk guidelines.
--- NOTE | 2017-04-18 12:26 | NUR ---
Dressing changes/shower Per surgeon orders pt is getting TID flush/dressing changes on I&D site, done once this am and will do once more this afternoon and PRN if needed. Also, pt has showered this am already. Care continues.
--- NOTE | 2017-04-18 12:27 | PCM.PNMED ---
Subjective Date of Service April 18, 2017 Subjective Denies any new issues/complaints. no n/v/diarrhea. Exam Vital Signs Vital Sign - Last Date Time Temp Pulse Resp B/P Pulse Ox O2 Delivery O2 Flow Rate FiO2 04/18/17 07:30 Supplement Oxygen 04/18/17 05:42 36.4 74 20 149/68 96 2.00 Intake and Output 04/17/17 04/17/17 04/18/17 Cumulative From/Thru 15:00 23:00 07:00 04/14/17 01:37 - 04/18/17 05:59 Intake Total 672 ml 2452 ml 1190 ml 15915 ml Output Total 1300 ml 1600 ml 48455 ml Balance 672 ml 1152 ml -410 ml 1891 ml Intake Oral 1650 ml 400 ml 6425 ml IV Total 672 ml 802 ml 790 ml 7351 ml Output Urine Total 1300 ml 1600 ml 38954 ml # Voids 1 # Bowel Movements 0 1 2 Exam General: Alert, Cooperative, No Acute Distress Head: Normal Eyes: PERRLA, EOMI, Scleral Anicteric Nose: Mucous Membr Moist/[place] Mouth: Mucous Membr Moist/[place] Neck: Supple. right side of the neck with ecchymosis and open wound still draining pus Chest & Lungs: Chest Wall Normal, Clear to auscultation bilat Cardiovascular: Regular Rate/Rhythm Abdomen: Non-tender, Non-distended, Normoactive bowel tones, Soft Extremities: Other (1+ pitting edema in LE bilat) Skin: Other (diffusely erythematous area behind the right ear, extending down to the right side of neck with central ulceration draining pus) Neurological: Grossly Neurologically Intact, Normal Speech IVs and Medications Medications Reviewed: Medications were reviewed in detail Lab and Diagnostics Result Diagram: 04/18/1752904/18/17529 X-Rays, CTs and MRIs Date of Service: 04/14/17 0148 PROCEDURE: X-RAY CHEST ONE VIEW, PORTABLE ([id number]) IMPRESSION: No acute cardiopulmonary disease. Dictated by: Karthik GREENE Interpreted: An Moise MD on 04/14/2017 at 9:09 Transcribed by: ARELY on 04/14/2017 at 9:11 Approved by: An Moise M.D. on 04/14/2017 at 11:59 Date of Service: 04/14/17 014 PROCEDURE: CT CERVICAL SPINE WITHOUT CONTRAST ([id number]) IMPRESSION: 1. Limited examination due to motion artifacts. 2. No definitive fractures in cervical spine. 3. Degenerative changes as described. 4. Soft tissue swelling in the right occipital region. 5. Partial opacification of right mastoids. Recommend clinical correlation for mastoiditis. Dictated by: An Moise M.D. on 04/14/2017 at 8:15 Approved by: An Moise M.D. on 04/14/2017 at 8:19 Date of Service: 04/14/17147 PROCEDURE: CT BRAIN WITHOUT CONTRAST ([id number]) IMPRESSION: 1. No acute intracranial abnormalities. 2. Mild cerebral volume loss and chronic microvascular ischemic changes. 3. Right occipital soft tissue swelling. No significant discrepancy with the cage shift manager radiology preliminary report. Dictated by: An Moise M.D. on 04/14/2017 at 8:12 Approved by: An Moise M.D. on 04/14/2017 at 8:14 Additional Diagnostics Date of Service: 04/14/17 1311 PROCEDURE: US SOFT TISSUE OF HEAD OR NECK SONOGRAM IMPRESSION: 1. No drainable fluid present to suggest abscess. 2. Marked soft tissue swelling over the posterior right upper neck/mastoid region consistent with cellulitis. Dictated by: An Moise M.D. on 04/14/2017 at 14:42 Approved by: An Moise M.D. on 04/14/2017 at 14:44 Assessment & Plan 71 year old male with a history of insulin dependant diabetes mellitus, hyperlipidemia, and hypertension who presents with possible "falling off his back porch" but also noted to have significant cellulitis and possible abscess of his posterior right neck with significant hyperglycemia and possible acute sepsis on presentation. # Acute sepsis (Tachycardia, tachypnea, leukocytosis, MATTEO, and lactic acidosis) with source likely right neck cellulitis. Present on admission. Clinically improving - Lactic acidosis resolved with IVF - Continue with IV antibiotics - Continue with supportive care # Acute right neck cellulitis with abscess, present on admission. Ongoing - Cultures growing MRSA - Post incision and drainage with debridement of right posterior auricular soft tissue abscess on 04/16 - Appreciate ID and surgery consults. will followup with recommendations. - Continue with Daptomycin for now - Outpatient antibiotics Zyvox 600 b.i.d. for about 10 days after he leaves. - Continue with wound care - IV Morphine prn for pain control # History of diabetes with significant hyperglycemia, present on admission. Improved but still poorly controlled - Missed insulin regimen over the past week - Increased home dose Lantus to 50 units qhs and add additional 15 units daily. Continue to titrate up for better control - Continue ISS - HgA1C 11.1 # History of hypertension. Currently somewhat hypertensive - Continue to hold home BP medications until certain patient hemodynamically stable and not worsening sepsis # Acute kidney injury, present on admission. Resolved - Likely pre-renal azotemia - continue with gentle IVF and followup - Avoid nephrotoxic medications Dispo: will continue with IV antibiotics for 2-3 more days in the hospital GI Prophylaxis: Not indicated VTE Prophylaxis: Sub-Q Heparin (Unfractionated) VTE Mechanical Devices: Intermittant Pneumatic CD Resuscitation Status: CPR: Attempt Resuscitation (discussed and verified with patient) Edinson Herron April 18, 2017 12:27
--- NOTE | 2017-04-18 12:28 | NUR ---
Dressing Dressing has not been able to stay in place because no tape is allowed to be used on skin on/around wound. Surgeon this am notified that wound was left to open air & he approved. Care continues.
[2017-04-18 13:22] VITALS: BP 155/75; PULSE 84; RESP 26; O2SAT 94
[2017-04-18] MEDS: DAPTOmycin Inj 750 MG in 0.9% Sodium Chloride 50 ML IV SCH (15:33)
[2017-04-18 20:25] VITALS: BP 142/67; PULSE 78; RESP 26; O2SAT 96
[2017-04-19] MEDS: Heparin 5,000 Unit/mL Inj SUBQ SCH ×3 (00:30→16:44)
--- NOTE | 2017-04-19 05:04 | NUR ---
Wound care/Pain Patient head would flushed with NS then cleaned with soap and water. Left open to air. Pt complained of pain at wound site 04/01. Administered pain medication. IV push, effective. Pt rested throughout rest of night with no complaints of pain or discomfort. Denies chest pain or discomfort. No complaints of SOB, n/v. Call light in reach, using appropriately. Frequent rounding in place. Pleasant and cooperative with care.
[2017-04-19 05:12] VITALS: BP 144/74; PULSE 74; RESP 24; O2SAT 95
[2017-04-19] MEDS: Insulin LISPRO Medium-Dose Scale SUBQ SCH ×2 (07:43→11:38)
[2017-04-19] MEDS: Insulin GLARgine 100 Unit/mL Syringe SUBQ SCH ×2 (08:29→22:56)
[2017-04-19] MEDS: Mupirocin 2% 22 Gm Ointment TOPICAL SCH ×2 (09:44→22:53)
[2017-04-19] MEDS: 0.9% Sodium Chloride 1,000 ML IV SCH ×2 (09:45→22:55)
--- NOTE | 2017-04-19 11:51 | NUR ---
Blood glucose levels has been running consistent high blood glucose levels in the 300's and occasionally in the 400's. Lunch BG was 415. MD notified to see if any modifications need to be made. Care continues Addendum: 04/19/17 at 1215 by DANAY GALDAMEZ RN MD has made medical alterations to address this issue, continuing to monitor.
[2017-04-19] MEDS ORDERED: Glucose 40% Oral Gel 15 Gm Tube PO PRN (12:05)
[2017-04-19] MEDS ORDERED: Dextrose 10% 250 ML IV PRN (12:05)
--- NOTE | 2017-04-19 12:25 | NUR ---
Social Work: Readiness for d/c Data: Pt is on day 5 of hospitalization. EMR reviewed. Pt discussed in rounds. MD states pt likely to d/c home in 1-2 days. MEDICAL NUMERICAL CONTROL OPERATOR met with pt who continues to plan to go home at discharge. Pt's is also an inpt at the hospital. RN reports pt has been independent in room. No further d/c planning needs at this time, MEDICAL NUMERICAL CONTROL OPERATOR will continue to follow. Plan: Pt will d/c home via POV when medically stable. No further d/c planning needs at this time, MEDICAL NUMERICAL CONTROL OPERATOR will continue to follow. TERRANCE Bojorquez
[2017-04-19 14:06] VITALS: BP 143/68; PULSE 81; RESP 20; O2SAT 91
--- NOTE | 2017-04-19 14:20 | PCM.PNMED ---
Subjective Date of Service April 19, 2017 Subjective Denies any new issues/complaints. no n/v/diarrhea. Exam Vital Signs Vital Sign - Last Date Time Temp Pulse Resp B/P Pulse Ox O2 Delivery O2 Flow Rate FiO2 04/19/17 14:06 37.0 81 20 143/68 91 Nasal Cannula 2.00 Intake and Output 04/18/17 04/18/17 04/19/17 Cumulative From/Thru 15:00 23:00 07:00 04/14/17 01:37 - 04/19/17 06:08 Intake Total 275 ml 1840 ml 300 ml 43519 ml Output Total 1400 ml 700 ml 28400 ml Balance 275 ml 440 ml -400 ml 2206 ml Intake Oral 1440 ml 300 ml 8165 ml IV Total 275 ml 400 ml 8026 ml Output Urine Total 1400 ml 700 ml 89699 ml # Voids 2 3 # Bowel Movements 0 2 Exam General: Alert, Cooperative, No Acute Distress Head: Normal Eyes: PERRLA, EOMI, Scleral Anicteric Nose: Mucous Membr Moist/[place] Mouth: Mucous Membr Moist/[place] Neck: Supple. right side of the neck with ecchymosis and open wound still draining pus Chest & Lungs: Chest Wall Normal, Clear to auscultation bilat Cardiovascular: Regular Rate/Rhythm Abdomen: Non-tender, Non-distended, Normoactive bowel tones, Soft Extremities: Other (1+ pitting edema in LE bilat) Skin: Other (diffusely erythematous area behind the right ear, extending down to the right side of neck with central ulceration draining pus) Neurological: Grossly Neurologically Intact, Normal Speech IVs and Medications Medications Reviewed: Medications were reviewed in detail Lab and Diagnostics Result Diagram: 04/18/1752904/18/17529 X-Rays, CTs and MRIs Date of Service: 04/14/17 0148 PROCEDURE: X-RAY CHEST ONE VIEW, PORTABLE ([id number]) IMPRESSION: No acute cardiopulmonary disease. Dictated by: Karthik GREENE Interpreted: An Moise MD on 04/14/2017 at 9:09 Transcribed by: ARELY on 04/14/2017 at 9:11 Approved by: An Moise M.D. on 04/14/2017 at 11:59 Date of Service: 04/14/17 0148 PROCEDURE: CT CERVICAL SPINE WITHOUT CONTRAST ([id number]) IMPRESSION: 1. Limited examination due to motion artifacts. 2. No definitive fractures in cervical spine. 3. Degenerative changes as described. 4. Soft tissue swelling in the right occipital region. 5. Partial opacification of right mastoids. Recommend clinical correlation for mastoiditis. Dictated by: An Moise M.D. on 04/14/2017 at 8:15 Approved by: An Moise M.D. on 04/14/2017 at 8:19 Date of Service: 04/14/17147 PROCEDURE: CT BRAIN WITHOUT CONTRAST ([id number]) IMPRESSION: 1. No acute intracranial abnormalities. 2. Mild cerebral volume loss and chronic microvascular ischemic changes. 3. Right occipital soft tissue swelling. No significant discrepancy with the shift superintendent caustic cresylate radiology preliminary report. Dictated by: An Moise M.D. on 04/14/2017 at 8:12 Approved by: An Moise M.D. on 04/14/2017 at 8:14 Additional Diagnostics Date of Service: 04/14/17 1311 PROCEDURE: US SOFT TISSUE OF HEAD OR NECK SONOGRAM IMPRESSION: 1. No drainable fluid present to suggest abscess. 2. Marked soft tissue swelling over the posterior right upper neck/mastoid region consistent with cellulitis. Dictated by: An Moise M.D. on 04/14/2017 at 14:42 Approved by: An Moise M.D. on 04/14/2017 at 14:44 Assessment & Plan 71 year old male with a history of insulin dependant diabetes mellitus, hyperlipidemia, and hypertension who presents with possible "falling off his back porch" but also noted to have significant cellulitis and possible abscess of his posterior right neck with significant hyperglycemia and possible acute sepsis on presentation. # Acute sepsis (Tachycardia, tachypnea, leukocytosis, MATTEO, and lactic acidosis) with source likely right neck cellulitis. Present on admission. Clinically resolved. - Lactic acidosis resolved with IVF - Continue with IV antibiotics - Continue with supportive care # Acute right neck cellulitis with abscess, present on admission. Ongoing - Cultures growing MRSA - Post incision and drainage with debridement of right posterior auricular soft tissue abscess on 04/16 - Appreciate ID and surgery consults. will followup with recommendations. - Continue with Daptomycin for now - Outpatient antibiotics Zyvox 600 b.i.d. for about 10 days after he leaves. - Continue with wound care - IV Morphine prn for pain control # History of diabetes with significant hyperglycemia, present on admission. Still poorly controlled - Had missed insulin regimen over the past week prior to admission - Increase Lantus to 55 units qhs and 20 units daily. Continue to titrate up for better control - Continue ISS - Add premeal insulin - HgA1C 11.1 # History of hypertension. Currently somewhat hypertensive - Continue to hold home BP medications until certain patient hemodynamically stable and not worsening sepsis # Acute kidney injury, present on admission. Resolved - Likely pre-renal azotemia - continue with gentle IVF and followup - Avoid nephrotoxic medications Dispo: will continue with IV antibiotics for 1-2 more days in the hospital GI Prophylaxis: Not indicated VTE Prophylaxis: Sub-Q Heparin (Unfractionated) VTE Mechanical Devices: Intermittant Pneumatic CD Resuscitation Status: CPR: Attempt Resuscitation (discussed and verified with patient) Edinson Herron April 19, 2017 14:20
--- NOTE | 2017-04-19 15:09 | NUR ---
Wound care/shower Pt has had wound clean/flush x1 & and shower, senior technical writer will clean wound once more before shift change. Addendum: 04/19/17 at 1811 by DANAY GALDAMEZ RN 2nd round of WC done, NOC shift to clean 1x overnight
[2017-04-19] MEDS: DAPTOmycin Inj 750 MG in 0.9% Sodium Chloride 50 ML IV SCH (15:29)
[2017-04-19] MEDS: Insulin LISPRO 300 Unit/3 mL Inj SUBQ SCH ×2 (16:45→22:57)
[2017-04-19 22:43] VITALS: BP 173/79; PULSE 91; RESP 20; O2SAT 93
[2017-04-20] MEDS: Heparin 5,000 Unit/mL Inj SUBQ SCH ×3 (00:48→16:30)
[2017-04-20 04:26] VITALS: BP 163/73; PULSE 77; RESP 18; O2SAT 94
--- NOTE | 2017-04-20 05:57 | NUR ---
Wound care Right posterior neck wound care performed. Wound was washed with soapy water and then rinsed rigorously with NS. Yellow/ purulent foul exudate noted. Wound was covered with gauze and wrapped with Kerlix. Dressing remains C/D/I.
[2017-04-20 07:19] LABS: BASOPHILS % (AUTO) 0.3 % (0-3); EOSINOPHILS % (AUTO) 2.6 % (0-5); MONOCYTES % (AUTO) 7.2 % (4-12); Mean Corpuscular Hemoglobin 28.5 pg (27.0-35.0); NEUTROPHILS % (AUTO) 72.5 % (40-74); Platelet Count 266 bil/L (150-400)
[2017-04-20] MEDS: 0.9% Sodium Chloride 1,000 ML IV SCH (08:30)
[2017-04-20] MEDS ORDERED: Insulin GLARgine 100 Unit/mL Syringe SUBQ SCH (08:30)
[2017-04-20] MEDS: Insulin LISPRO 300 Unit/3 mL Inj SUBQ SCH ×4 (08:44→20:48)
[2017-04-20] MEDS: Mupirocin 2% 22 Gm Ointment TOPICAL SCH ×2 (08:46→20:47)
--- NOTE | 2017-04-20 10:04 | PCM.PNMED ---
Subjective Date of Service April 20, 2017 Subjective Denies any new issues/complaints. no n/v/diarrhea. Exam Vital Signs Vital Sign - Last Date Time Temp Pulse Resp B/P Pulse Ox O2 Delivery O2 Flow Rate FiO2 04/20/17 08:51 Supplement Oxygen 04/20/17 04:26 36.9 77 18 163/73 94 04/19/17 14:06 2.00 Intake and Output 04/19/17 04/19/17 04/20/17 Cumulative From/Thru 15:00 23:00 07:00 04/14/17 01:37 - 04/20/17 06:36 Intake Total 1164 ml 1470 ml 1037 ml 89167 ml Output Total 700 ml 94087 ml Balance 1164 ml 770 ml 1037 ml 5177 ml Intake Oral 1044 ml 9209 ml IV Total 1164 ml 426 ml 1037 ml 21496 ml Output Urine Total 700 ml 07336 ml # Voids 3 # Bowel Movements 1 3 Exam General: Alert, Cooperative, No Acute Distress Head: Normal Eyes: PERRLA, EOMI, Scleral Anicteric Nose: Mucous Membr Moist/[place] Mouth: Mucous Membr Moist/[place] Neck: Supple. right side of the neck with ecchymosis and open wound still draining pus Chest & Lungs: Chest Wall Normal, Clear to auscultation bilat Cardiovascular: Regular Rate/Rhythm Abdomen: Non-tender, Non-distended, Normoactive bowel tones, Soft Extremities: Other (1+ pitting edema in LE bilat) Skin: neck cellulitis as noted above Neurological: Grossly Neurologically Intact, Normal Speech IVs and Medications Medications Reviewed: Medications were reviewed in detail Lab and Diagnostics Result Diagram: 04/20/17 0715 04/20/17 0715 X-Rays, CTs and MRIs Date of Service: 04/14/17 0148 PROCEDURE: X-RAY CHEST ONE VIEW, PORTABLE ([id number]) IMPRESSION: No acute cardiopulmonary disease. Dictated by: Karthik GREENE Interpreted: An Moise MD on 04/14/2017 at 9:09 Transcribed by: ARELY on 04/14/2017 at 9:11 Approved by: An Moise M.D. on 04/14/2017 at 11:59 Date of Service: 04/14/17147 PROCEDURE: CT CERVICAL SPINE WITHOUT CONTRAST ([id number]) IMPRESSION: 1. Limited examination due to motion artifacts. 2. No definitive fractures in cervical spine. 3. Degenerative changes as described. 4. Soft tissue swelling in the right occipital region. 5. Partial opacification of right mastoids. Recommend clinical correlation for mastoiditis. Dictated by: An Moise M.D. on 04/14/2017 at 8:15 Approved by: An Moise M.D. on 04/14/2017 at 8:19 Date of Service: 04/14/17147 PROCEDURE: CT BRAIN WITHOUT CONTRAST ([id number]) IMPRESSION: 1. No acute intracranial abnormalities. 2. Mild cerebral volume loss and chronic microvascular ischemic changes. 3. Right occipital soft tissue swelling. No significant discrepancy with the night warehouse manager radiology preliminary report. Dictated by: An Moise M.D. on 04/14/2017 at 8:12 Approved by: An Moise M.D. on 04/14/2017 at 8:14 Additional Diagnostics Date of Service: 04/14/17 1311 PROCEDURE: US SOFT TISSUE OF HEAD OR NECK SONOGRAM IMPRESSION: 1. No drainable fluid present to suggest abscess. 2. Marked soft tissue swelling over the posterior right upper neck/mastoid region consistent with cellulitis. Dictated by: An Moise M.D. on 04/14/2017 at 14:42 Approved by: An Moise M.D. on 04/14/2017 at 14:44 Assessment & Plan 71 year old male with a history of insulin dependant diabetes mellitus, hyperlipidemia, and hypertension who presents with possible "falling off his back porch" but also noted to have significant cellulitis and possible abscess of his posterior right neck with significant hyperglycemia and possible acute sepsis on presentation. # Acute right neck cellulitis with abscess, present on admission. Ongoing - Cultures growing MRSA - Post incision and drainage with debridement of right posterior auricular soft tissue abscess on 04/16 - Appreciate ID and surgery consults. will followup with recommendations. - Continue with Daptomycin for now - Outpatient antibiotics Zyvox 600 b.i.d. for about 10 days after he leaves. - Continue with wound care - IV Morphine prn for pain control # Acute sepsis (Tachycardia, tachypnea, leukocytosis, MATTEO, and lactic acidosis) with source likely right neck cellulitis. Present on admission. Clinically resolved. - Lactic acidosis resolved with IVF - Continue with IV antibiotics - Continue with supportive care # History of diabetes with significant hyperglycemia, present on admission. Finally somewhat improved - Had missed insulin regimen over the past week prior to admission - Increased Lantus to 55 units qhs and 20 units daily. Continue to titrate up for better control - Continue ISS - Added premeal insulin - HgA1C 11.1 # History of hypertension. Currently somewhat hypertensive - Resume home dose Lisinopril and then likely Amlodipine # Acute kidney injury, present on admission. Resolved - Likely pre-renal azotemia - Avoid nephrotoxic medications Dispo: 1-2 days pending improving cellulitis and better glucose control GI Prophylaxis: Not indicated VTE Prophylaxis: Sub-Q Heparin (Unfractionated) VTE Mechanical Devices: Venous Foot Pump Resuscitation Status: CPR: Attempt Resuscitation (discussed and verified with patient) Edinson Herron April 20, 2017 10:04
--- NOTE | 2017-04-20 10:29 | PROG NOTE ---
[address] [address] PROGRESS NOTE PATIENT: GUZMAN BRADLEY : 1945 MR#: [id number] ADMIT: 04/14/2017 JOB ID: [id number] DATE: 04/20/2017 SUBJECTIVE: The patient is seen for followup for his right postauricular wound. OBJECTIVE: He tells me he is feeling much better. He is has remained afebrile over the last 24 hours. He is up in a chair alert and oriented and appears comfortable. His wound is inspected. There is a little bit of purulent drainage, but overall looks about the same as it did 2 days ago. His white blood cell count has trended down it is 10.7 today from 12 on the . ASSESSMENT AND PLAN: This is a 71-year-old man with poorly controlled diabetes with a right postauricular abscess status post incision and drainage. Overall, he seems to be doing well. I think he can be discharged home with outpatient [facility].
--- NOTE | 2017-04-20 10:39 | PCM.ADCARE ---
Advance Care Planning Note Purpose of Encounter: Goals of care and advance care planning. Parties in Attendance: Patient Decisional Capacity: Decisional Subjective: Denies any new issues/complaints Objective: General: Alert, Cooperative, No Acute Distress Head: Normal Eyes: PERRLA, EOMI, Scleral Anicteric Nose: Mucous Membr Moist/[place] Mouth: Mucous Membr Moist/[place] Neck: Supple. right side of the neck with ecchymosis and open wound still draining pus Chest & Lungs: Chest Wall Normal, Clear to auscultation bilat Cardiovascular: Regular Rate/Rhythm Abdomen: Non-tender, Non-distended, Normoactive bowel tones, Soft Extremities: Other (1+ pitting edema in LE bilat) Skin: neck cellulitis as noted above Neurological: Grossly Neurologically Intact, Normal Speech Goals of Care Determinations: Hopes to be able to return to his prior living situation at home but willing to consider SNF or HH if needed Plan: Continue with current treatment CODE STATUS: Full Code Time Spent Adv.Care Plannin min Edinson Herron April 20, 2017 10:39
[2017-04-20] MEDS: Lisinopril 40 Tablet PO SCH ×2 (12:39→20:47)
--- NOTE | 2017-04-20 14:10 | NUR ---
Social Work-readiness for discharge: Data:EMR Reviewed. Pt is on day 3 of hospitalization for hyperglycemia per H&P. Pt is not medically stable for discharge anticipate 1-2 days. Pt resides at home with . SW followed up with pt to confirm plan of home at discharge. Pt plans to pay for taxi at discharge for transport. Per surgery notes, pt will have outpt wound care follow up at wound care center. Pt has been up independent in his room. No anticipated discharge needs. SW will continue to follow if needs arise. Assessment:Pt who is independent at baseline. Plan:Pt to discharge home when medically stable via POV. Pt to have outpt wound care at the wound care center per surgery. No anticipated discharge needs. SW will continue to follow if needs arise. TERRANCE Israel
--- NOTE | 2017-04-20 14:50 | NUR ---
wound care dressings removed. pt asks to wait on irrigation until after he gets his next dose of pain medication. This RN gave pt pain medication and wasn't aware of dressing change schedule.
[2017-04-20 14:51] VITALS: BP 163/63; PULSE 80; RESP 18; O2SAT 91
[2017-04-20] MEDS: DAPTOmycin Inj 750 MG in 0.9% Sodium Chloride 50 ML IV SCH (15:50)
--- NOTE | 2017-04-20 17:24 | NUR ---
wound care Right posterior neck wound care. Wound was washed with soapy water and then rinsed rigorously with NS. Yellow/ purulent foul exudate noted. Wound was covered with gauze and wrapped with Kerlix. Dressing remains C/D/I.
[2017-04-20] MEDS: Insulin GLARgine 100 Unit/mL Syringe SUBQ SCH (20:48)
[2017-04-20 20:50] VITALS: BP 183/81; PULSE 85; RESP 18; O2SAT 90
[2017-04-21] MEDS: Heparin 5,000 Unit/mL Inj SUBQ SCH ×3 (00:07→16:22)
--- NOTE | 2017-04-21 04:39 | NUR ---
dressing/BG/activity Wound to R posterior ear/neck was cleansed with NS and soapy water then covered with 4x4 gauze and kerlix. dressing didn't stay covering the wound because pt moves around in bed a lot. Pt refused to have another dressing placed tonight. wound has moderate purulent drainage. BG was 309 at HS; lantus and sliding scale Lispro given. BG was down to 260 when rechecked. SBA to the bathroon; gait steady. waits for staff roundings to use the BR. able to sleep in between.
[2017-04-21 05:06] VITALS: BP 149/75; PULSE 77; RESP 20; O2SAT 92
--- NOTE | 2017-04-21 06:01 | NUR ---
O2 at night Sats in mid to high 90s on RA when awake; dips to mid to low 80s when asleep. Pt is placed on 2L O2 at night; sats in mid 90s.
[2017-04-21] MEDS: Insulin LISPRO 300 Unit/3 mL Inj SUBQ SCH ×4 (07:36→22:05)
[2017-04-21] MEDS: Lisinopril 40 Tablet PO SCH ×2 (08:09→20:18)
[2017-04-21] MEDS: Mupirocin 2% 22 Gm Ointment TOPICAL SCH ×2 (08:13→20:19)
[2017-04-21] MEDS ORDERED: Insulin GLARgine 100 Unit/mL Syringe SUBQ SCH (08:30)
--- NOTE | 2017-04-21 12:13 | PCM.PNMED ---
Subjective Date of Service April 21, 2017 Subjective Denies any new issues/complaints. no n/v/diarrhea. Exam Vital Signs Vital Sign - Last Date Time Temp Pulse Resp B/P Pulse Ox O2 Delivery O2 Flow Rate FiO2 04/21/17 07:32 Supplement Oxygen 04/21/17 05:06 36.9 77 20 149/75 92 2.00 Intake and Output 04/20/17 04/20/17 04/21/17 Cumulative From/Thru 15:00 23:00 07:00 04/14/17 01:37 - 04/21/17 06:17 Intake Total 300 ml 828 ml 240 ml 92206 ml Output Total 200 ml 25785 ml Balance 100 ml 828 ml 240 ml 6345 ml Intake Oral 300 ml 828 ml 240 ml 46237 ml IV Total 62658 ml Output Urine Total 200 ml 66749 ml # Voids 5 5 13 # Bowel Movements 0 1 0 4 Exam General: Alert, Cooperative, No Acute Distress Head: Normal Eyes: Scleral Anicteric Nose: Mucous Membr Moist/[place] Mouth: Mucous Membr Moist/[place] Neck: Supple. right side of the neck with ecchymosis and open wound still draining pus Chest & Lungs: Chest Wall Normal, Clear to auscultation bilat Cardiovascular: Regular Rate/Rhythm Abdomen: Non-tender, Non-distended, Normoactive bowel tones, Soft Extremities: Other (1+ pitting edema in LE bilat) Skin: neck cellulitis as noted above Neurological: Grossly Neurologically Intact, Normal Speech IVs and Medications Medications Reviewed: Medications were reviewed in detail Lab and Diagnostics Result Diagram: 04/20/1771404/20/17714 X-Rays, CTs and MRIs Date of Service: 04/14/17147 PROCEDURE: X-RAY CHEST ONE VIEW, PORTABLE ([id number]) IMPRESSION: No acute cardiopulmonary disease. Dictated by: Karthik [facility] Interpreted: An Moise MD on 04/14/2017 at 9:09 Transcribed by: ARELY on 04/14/2017 at 9:11 Approved by: An Moise M.D. on 04/14/2017 at 11:59 Date of Service: 04/14/17147 PROCEDURE: CT CERVICAL SPINE WITHOUT CONTRAST ([id number]) IMPRESSION: 1. Limited examination due to motion artifacts. 2. No definitive fractures in cervical spine. 3. Degenerative changes as described. 4. Soft tissue swelling in the right occipital region. 5. Partial opacification of right mastoids. Recommend clinical correlation for mastoiditis. Dictated by: An Miose M.D. on 04/14/2017 at 8:15 Approved by: An Moise M.D. on 04/14/2017 at 8:19 Date of Service: 04/14/17 0148 PROCEDURE: CT BRAIN WITHOUT CONTRAST ([id number]) IMPRESSION: 1. No acute intracranial abnormalities. 2. Mild cerebral volume loss and chronic microvascular ischemic changes. 3. Right occipital soft tissue swelling. No significant discrepancy with the councilman radiology preliminary report. Dictated by: An Moise M.D. on 04/14/2017 at 8:12 Approved by: An Moise M.D. on 04/14/2017 at 8:14 Additional Diagnostics Date of Service: 04/14/17 1311 PROCEDURE: US SOFT TISSUE OF HEAD OR NECK SONOGRAM IMPRESSION: 1. No drainable fluid present to suggest abscess. 2. Marked soft tissue swelling over the posterior right upper neck/mastoid region consistent with cellulitis. Dictated by: An Moise M.D. on 04/14/2017 at 14:42 Approved by: An Moise M.D. on 04/14/2017 at 14:44 Assessment & Plan 71 year old male with a history of insulin dependant diabetes mellitus, hyperlipidemia, and hypertension who presents with possible "falling off his back porch" but also noted to have significant cellulitis and possible abscess of his posterior right neck with significant hyperglycemia and possible acute sepsis on presentation. # Acute right neck cellulitis with abscess, present on admission. Ongoing - Cultures growing MRSA - Post incision and drainage with debridement of right posterior auricular soft tissue abscess on 04/16 - Appreciate ID and surgery consults. will followup with recommendations. - Continue with Daptomycin while inpatient - Outpatient antibiotics Zyvox 600 b.i.d. for about 10 days after he leaves. - Continue with wound care - IV Morphine prn for pain control # Acute sepsis (Tachycardia, tachypnea, leukocytosis, MATTEO, and lactic acidosis) with source likely right neck cellulitis. Present on admission. Clinically resolved. - Lactic acidosis resolved with IVF - Continue with IV antibiotics - Continue with supportive care # History of diabetes with significant hyperglycemia, present on admission. Finally somewhat improved but still not ideal - Had missed insulin regimen over the past week prior to admission - Increased Lantus to 55 units qhs and 20 units daily. Continue to titrate up for better control. Will increase AM Lantus to 25 units today - Continue ISS - Added premeal insulin - HgA1C 11.1 # History of hypertension. Currently somewhat hypertensive - Resume home dose Lisinopril and then likely Amlodipine # Acute kidney injury, present on admission. Resolved - Likely pre-renal azotemia - Avoid nephrotoxic medications Dispo: 1-2 days pending better glucose control GI Prophylaxis: Not indicated VTE Prophylaxis: Sub-Q Heparin (Unfractionated) VTE Mechanical Devices: Venous Foot Pump Resuscitation Status: CPR: Attempt Resuscitation (discussed and verified with patient) Edinson Herron April 21, 2017 12:13
--- NOTE | 2017-04-21 15:00 | PCM.PNSURG ---
Subjective Date of Service: April 21, 2017 Date of Service: April 21, 2017 Visit Information: Reason for Visit Hyperglycemia/Confusion Surgery/Surgery Date Post-Op Day # Date of Admission: April 14, 2017 at 07:52 Hospital Day # Subjective: Patient is seen in surgical follow-up. He is now postop day #5 status post incision and drainage with debridement of right posterior auricular soft tissue abscess. He was admitted with bacteremia and poorly controlled diabetes in addition to his right postauricular abscess and cellulitis. He reports today that he is doing much better. He reports no issues overnight. His has been admitted and he was actually examined in her room, next door. He reports good pain control but continues to drainage from his right postauricular wound. He is followed by wound care and they are planning on managing him as an outpatient at the wound care center. He is on Daptomycin and Bactroban per his nares. His glucose levels continue to be elevated, bedside glucose levels ranged from low 200s to upper 300s. He has been afebrile except for 37.6 yesterday at 2:50 p.m., He denies any night sweats or chills. Gastrointestinal: Good Appetite, Normal Bowel Movement Pain Management: Good Pain Control Postop Activity: Ambulating Independently Objective Objective Pleasant overweight gentleman seen in his whites room, next or to his. Vital Sign- Last 8 Hours Date Time Temp Pulse Resp B/P Pulse Ox O2 Delivery O2 Flow Rate FiO2 04/21/17 07:32 Supplement Oxygen Intake and Output- Last 8 Hour 04/21/17 Cumulative From/Thru 07:00 04/14/17 01:37 - 04/21/17 06:17 Intake Total 240 ml 64168 ml Output Total 19965 ml Balance 240 ml 6345 ml Intake Oral 240 ml 19381 ml IV Total 16038 ml Output Urine Total 86242 ml # Voids 5 13 # Bowel Movements 0 4 General: Alert, Oriented X3, Cooperative, No Acute Distress Neck: Supple, Full Range of Motion, Other (right postauricular abscess is examined, there is some serous/purulent drainage noted at the wound opening. There is some induration surrounding tissue but no fluctuance. It is nontender to palpation. No pain with movement of the year. No tenderness along the sternocleidomastoid mastoid muscle no tenderness with gentle range of motion. No appreciable large nodes palpated) Lungs: Normal Air Movement Neuro: Grossly Neurologically Intact, Normal Speech Result Diagram: 04/20/17 0715 04/20/17714 Assessment & Plan Impression 71-year-old gentleman with poorly controlled diabetes was admitted with bacteremia and the surgical team is following for his right postauricular abscess, he is postop day 5 status post incision and drainage of this abscess. He is being followed by wound care and can continue to be followed as an outpatient at the wound care center. Tight glucose control will obviously be very important. He is to continue with Daptomycin and Bactroban as per Dr. Powers/infectious disease team. We will continue to follow along, from a surgical perspective his wound can be followed up in the wound care center when he is stable for discharge. Problems: VTE Prophylaxis: Sub-Q Heparin (Unfractionated) Resuscitation Status: CPR: Attempt Resuscitation (discussed and verified with patient) Marcy Jon PAC April 21, 2017 15:00
--- NOTE | 2017-04-21 15:17 | PROG NOTE ---
[address] [address] PROGRESS NOTE PATIENT: GUZMAN BRADLEY : 1945 MR#: [id number] ADMIT: 04/14/2017 JOB ID: [id number] DATE: 04/21/2017 REASON FOR FOLLOWUP: Severe right neck MRSA soft tissue infection, status post incision and drainage. INTERVAL HISTORY: In the four days I have been gone and not seen the patient, he has undergone additional evaluation by General Surgery, as well as a right postauricular abscess drainage. He has generally improved and now tells me he has gradually less pain in his right neck posterior to the ear. He is no longer having fevers, chills or sweats and denies new pulmonary symptoms. I did discuss the case with his hospitalist though and reports he continues to have a great deal of trouble with blood sugar control. PHYSICAL EXAMINATION: Reveals an afebrile gentleman. He has not had any notable fever now really in a week. His current temp is 36.9, pulse 77, respiratory rate 20, blood pressure 149/75. He is saturating well on 2 L. He is in no acute distress, and in fact, I saw him in his 's room as she was admitted to the room next door to his and he was in visiting and looking quite well. He does have still about a 7 x 5 area of purplish erythematous, moderately warm and tender area beginning behind his right ear and extended down the nape of his neck, but this is actually much better than it was a few days ago when I last saw him. His lungs are quite clear. As noted, his mental status is normal. Cardiac tones without change. LABORATORIES: Include a white count done yesterday, 10,700, which is his best so far. Completely normal diff. Creatinine is down to 1.2. His culture of course grew MRSA which was sensitive to ceftaroline and daptomycin but unfortunately resistant to clindamycin. No new imaging has been performed the last few days. IMPRESSION: This patient's methicillin-resistant Staphylococcus aureus abscess has improved considerably with antibiotics as well as incision and drainage. Unfortunately, continues to have moderately severe diabetes and so his insulin is rapidly being escalated. Recall that when he came in, his hemoglobin A1c was over 11 which is certainly not helping with respect to his methicillin-resistant Staphylococcus aureus neck abscess. RECOMMENDATIONS: 1. We can wrap up his daptomycin as of tomorrow morning. 2. The patient will be started on Zyvox 600 mg p.o. b.i.d., with the plan to go for about 10 days for this very severe soft tissue infection. 3. I spoke to [facility] who told me they plan to see the patient in an outpatient setting following his discharge, which I think is most appropriate. 4. I do not think that additional specific followup with the Infectious Disease service is needed at this time and will go ahead and sign off with my recommendation to be continue Zyvox for 10 days starting this evening and continuing through May 01. Thank you very much.
[2017-04-21 15:25] VITALS: BP 164/76; PULSE 80; RESP 17; O2SAT 94
[2017-04-21] MEDS: DAPTOmycin Inj 750 MG in 0.9% Sodium Chloride 50 ML IV SCH (16:33)
[2017-04-21 21:03] VITALS: BP 134/77; PULSE 80; RESP 24; O2SAT 92
[2017-04-21] MEDS: Insulin GLARgine 100 Unit/mL Syringe SUBQ SCH (21:56)
--- NOTE | 2017-04-21 23:00 | NUR ---
Activity Pt alert and oriented x 4. BS remained high during shift. Pt up to visit in room next door. Pleasant and cooperative with cares.
[2017-04-22] MEDS: Heparin 5,000 Unit/mL Inj SUBQ SCH ×4 (00:30→23:39)
--- NOTE | 2017-04-22 02:31 | NUR ---
Wound care Patient took a shower over night, then we cleaned his open wound to neck with NS wash. Patient refused to have it bandaged in bed. Toby placed under head and all pillow cases changed as they were, all three, saturated with drainage from his sore. Patient chose to take a walk around the unit, agreed to have his wound wrapped while out of his room as it is actively draining. BG Katherin MD made aware and orders to cover using the high dose algorithm. Patient appears to be resting comfortably at this time.
[2017-04-22] MEDS: Insulin LISPRO 300 Unit/3 mL Inj SUBQ SCH ×6 (03:46→21:38)
[2017-04-22 05:15] VITALS: BP 137/68; PULSE 87; RESP 18; O2SAT 96
[2017-04-22 06:06] LABS: Mean Corpuscular Hemoglobin 28.6 pg (27.0-35.0); Mean Corpuscular Volume 88.9 fL (81-100)
[2017-04-22] MEDS: Lisinopril 40 Tablet PO SCH ×2 (08:10→21:36)
[2017-04-22] MEDS: Mupirocin 2% 22 Gm Ointment TOPICAL SCH ×2 (08:11→21:37)
[2017-04-22] MEDS: Insulin GLARgine 100 Unit/mL Syringe SUBQ SCH ×2 (10:29→21:38)
[2017-04-22 13:33] VITALS: BP 150/71; PULSE 76; RESP 20; O2SAT 93
--- NOTE | 2017-04-22 13:33 | PCM.PNSURG ---
Subjective Date of Service: April 22, 2017 Date of Service: April 22, 2017 Visit Information: Reason for Visit Hyperglycemia/Confusion Surgery/Surgery Date Post-Op Day #6 s/p Incision and drainage with debridement of right posterior auricular soft tissue abscess. Date of Admission: April 14, 2017 at 07:52 Hospital Day # Subjective: Patient seen at bedside. Reports no significant c/o's. Ambulating. Denies n/v/f/ c. Reports right post auricular pain significantly improved. Notes very little to no drainage from wound. Postop General: No Shortness of Breath, No Chest Pain Gastrointestinal: Good Appetite Pain Management: PO (tylenol), IV Push (morphine) Postop Activity: Ambulating Independently Objective Intake and Output- Last 8 Hour 04/22/17 Cumulative From/Thru 07:00 04/14/17 01:37 - 04/22/17 06:33 Intake Total 300 ml 04761 ml Output Total 33650 ml Balance 300 ml 7965 ml Intake Oral 300 ml 93469 ml IV Total 86783 ml Output Urine Total 18075 ml # Voids 4 25 # Bowel Movements 0 5 General: Alert, Oriented X3, Cooperative, No Acute Distress Lungs: Clear to Auscultation Heart: Exam Unremarkable SURGICAL WOUND : Wound Location/Description Post auricular right side Wound General Appearence: Incision Healing, No Discharge (minimal), Open Dressing & Drainage Status: Dressing Removed, No Odor Result Diagram: 04/22/17 0529 04/22/17 0529 Assessment & Plan Impression Right postauricular abscess s/p I&D improving -continue abx per ID recs -f/u wound clinic -continue glucose control Problems: VTE Prophylaxis: Sub-Q Heparin (Unfractionated) Resuscitation Status: CPR: Attempt Resuscitation (discussed and verified with patient) Davis Romero PA-C April 22, 2017 13:33
--- NOTE | 2017-04-22 15:41 | PCM.PNMED ---
Subjective Date of Service April 22, 2017 Subjective Denies any new issues/complaints. no n/v/diarrhea. Exam Vital Signs Vital Sign - Last Date Time Temp Pulse Resp B/P Pulse Ox O2 Delivery O2 Flow Rate FiO2 04/22/17 13:33 36.7 76 20 150/71 93 Room Air 04/21/17 05:06 2.00 Intake and Output 04/21/17 04/21/17 04/22/17 Cumulative From/Thru 15:00 23:00 07:00 04/14/17 01:37 - 04/22/17 06:33 Intake Total 1320 ml 300 ml 30548 ml Output Total 55510 ml Balance 1320 ml 300 ml 7965 ml Intake Oral 1320 ml 300 ml 52824 ml IV Total 03577 ml Output Urine Total 79983 ml # Voids 8 4 25 # Bowel Movements 1 0 5 Exam General: Alert, Cooperative, No Acute Distress Head: Normal Eyes: Scleral Anicteric Nose: Mucous Membr Moist/Penn Mouth: Mucous Membr Moist/Penn Neck: Supple. right side of the neck with ecchymosis and open wound still draining pus Chest & Lungs: Chest Wall Normal, Clear to auscultation bilat Cardiovascular: Regular Rate/Rhythm Abdomen: Non-tender, Non-distended, Normoactive bowel tones, Soft Extremities: Other (1+ pitting edema in LE bilat) Skin: neck cellulitis as noted above Neurological: Grossly Neurologically Intact, Normal Speech IVs and Medications Medications Reviewed: Medications were reviewed in detail Lab and Diagnostics Result Diagram: 04/22/1752804/22/17528 X-Rays, CTs and MRIs Date of Service: 04/14/17147 PROCEDURE: X-RAY CHEST ONE VIEW, PORTABLE ([id number]) IMPRESSION: No acute cardiopulmonary disease. Dictated by: Karthik Molina Lila Interpreted: An Moise MD on 04/14/2017 at 9:09 Transcribed by: ARELY on 04/14/2017 at 9:11 Approved by: An Moise M.D. on 04/14/2017 at 11:59 Date of Service: 04/14/17147 PROCEDURE: CT CERVICAL SPINE WITHOUT CONTRAST ([id number]) IMPRESSION: 1. Limited examination due to motion artifacts. 2. No definitive fractures in cervical spine. 3. Degenerative changes as described. 4. Soft tissue swelling in the right occipital region. 5. Partial opacification of right mastoids. Recommend clinical correlation for mastoiditis. Dictated by: An Moise M.D. on 04/14/2017 at 8:15 Approved by: An Moise M.D. on 04/14/2017 at 8:19 Date of Service: 04/14/17 0148 PROCEDURE: CT BRAIN WITHOUT CONTRAST ([id number]) IMPRESSION: 1. No acute intracranial abnormalities. 2. Mild cerebral volume loss and chronic microvascular ischemic changes. 3. Right occipital soft tissue swelling. No significant discrepancy with the night supervisor radiology preliminary report. Dictated by: An Moise M.D. on 04/14/2017 at 8:12 Approved by: An Moise M.D. on 04/14/2017 at 8:14 Additional Diagnostics Date of Service: 04/14/17 1311 PROCEDURE: US SOFT TISSUE OF HEAD OR NECK SONOGRAM IMPRESSION: 1. No drainable fluid present to suggest abscess. 2. Marked soft tissue swelling over the posterior right upper neck/mastoid region consistent with cellulitis. Dictated by: An Moise M.D. on 04/14/2017 at 14:42 Approved by: An Moise M.D. on 04/14/2017 at 14:44 Assessment & Plan 71 year old male with a history of insulin dependant diabetes mellitus, hyperlipidemia, and hypertension who presents with possible "falling off his back porch" but also noted to have significant cellulitis and possible abscess of his posterior right neck with significant hyperglycemia and possible acute sepsis on presentation. # Acute right neck cellulitis with abscess, present on admission. Ongoing - Cultures growing MRSA - Post incision and drainage with debridement of right posterior auricular soft tissue abscess on 04/16 - Appreciate ID and surgery consults. will followup with recommendations. - Finished course of IV Daptomycin on 04/21 - Continue with PO antibiotics Zyvox 600 b.i.d. for about 10 days (started on ) - Followup with wound care clinic on discharge - IV Morphine prn for pain control while inpatient # Acute sepsis (Tachycardia, tachypnea, leukocytosis, MATTEO, and lactic acidosis) with source likely right neck cellulitis. Present on admission. Clinically resolved. - Lactic acidosis resolved with IVF - Continue with IV antibiotics - Continue with supportive care # History of diabetes with significant hyperglycemia, present on admission. Still very poorly controlled - Had missed insulin regimen over the past week prior to admission - Increased his home dose Lantus from 40 to 55 units qhs and added AM Lantus which has been titrated up to 35 units daily today - Continue ISS - Patient thinks his sugars are poorly controlled here because they have been serving him pudding and cake with his diabetic meal in the hospital! He says will try not to eat further high sugar food here to see if we can lower his blood glucose - HgA1C 11.1 # History of hypertension. Currently somewhat hypertensive - Resume home dose Lisinopril and then likely Amlodipine # Acute kidney injury, present on admission. Resolved - Likely pre-renal azotemia - Avoid nephrotoxic medications Dispo: Was hoping to discharge him home today but his sugars were in the 400- 500 range this morning! Hopefully home tomorrow if glucose more reasonable after increasing AM Lantus and patient agreeable to eat less sugar and high carbohydrate diet even if provided on his diabetic diet in the hospital! GI Prophylaxis: Not indicated VTE Prophylaxis: Sub-Q Heparin (Unfractionated) VTE Mechanical Devices: Venous Foot Pump Resuscitation Status: CPR: Attempt Resuscitation (discussed and verified with patient) Edinson Herron April 22, 2017 15:41
--- NOTE | 2017-04-22 18:22 | NUR ---
Wound care/shower Pt had wound care clean/flush x2 and showered this afternoon. Will pass along to NOC nurse to do wound care x1 tonight.
[2017-04-22 20:12] VITALS: BP 173/90; PULSE 79; RESP 18; O2SAT 93
[2017-04-22 21:45] VITALS: BP 157/87; PULSE 82
--- NOTE | 2017-04-23 04:34 | NUR ---
Wound Care Pt had wound care flushed with NS and washed with soapy water x1 during this shift. pt had shower yesterday evening shift per day shift RN report. pt took Tylenol just before bed time for not to increase his pain more than 3. will continue to monitor.
[2017-04-23 05:24] VITALS: BP 116/70; PULSE 63; RESP 18; O2SAT 95
[2017-04-23] MEDS: Insulin LISPRO 300 Unit/3 mL Inj SUBQ SCH ×2 (07:32→11:20)
[2017-04-23] MEDS: Lisinopril 40 Tablet PO SCH (08:10)
[2017-04-23] MEDS: Heparin 5,000 Unit/mL Inj SUBQ SCH (08:10)
[2017-04-23] MEDS: Mupirocin 2% 22 Gm Ointment TOPICAL SCH (08:11)
[2017-04-23] MEDS: Insulin GLARgine 100 Unit/mL Syringe SUBQ SCH (08:11)
--- NOTE | 2017-04-23 09:04 | PCM.PNSURG ---
Subjective Date of Service: Apr 23, 2017 Date of Service: Apr 23, 2017 Visit Information: Reason for Visit Hyperglycemia/Confusion Surgery/Surgery Date Right post auricular Incision and drainage April 16, 2017 Post-Op Day # 7 Date of Admission: April 14, 2017 at 07:52 Subjective: 71 yo male s/p Incision and drainage with debridement of right posterior auricular soft tissue abscess. He was admitted with bacteremia and poorly controlled diabetes in addition to his right postauricular abscess and cellulitis. He reports today that he continues to do better. He got a good night of sleep and feels great this morning. He reports improvement in his wound and less drainage. He has decreased pain and has not needed IV pain medication for well over 48 hours. He reports no nausea, vomiting, diarrhea, or constipation. He has been experiencing no fever or chills. Wound has been healing to open air as it is difficult to dress. email production specialist evaluated abscess prior to incision and drainage. Postop General: No Shortness of Breath, No Chest Pain Gastrointestinal: Good Appetite, No N/V, Passing Stool, Normal Bowel Movement Pain Management: PO (Tylenol) Postop Activity: Ambulating Independently Objective Objective Pleasant gentleman in no acute distress. Vital Sign- Last 8 Hours Date Time Temp Pulse Resp B/P Pulse Ox O2 Delivery O2 Flow Rate FiO2 04/23/17 05:24 36.3 63 18 116/70 95 Room Air Intake and Output- Last 8 Hour 04/23/17 Cumulative From/Thru 07:00 04/14/17 01:37 - 04/23/17 05:34 Intake Total 200 ml 33400 ml Output Total 10498 ml Balance 200 ml 8885 ml Intake Oral 200 ml 55167 ml IV Total 27882 ml Output Urine Total 21095 ml # Voids 3 32 # Bowel Movements 5 General: Alert, Oriented X3 Neck: Supple Lungs: Clear to Auscultation, Normal Air Movement Heart: Regular Rate/Rhythm, Murmur (systolic, heard best at the left lower sternal border) Abdomen: Soft, Protuberant, Normoactive bowel tones SURGICAL WOUND : Wound Location/Description Right postauricular area of induration with surgical incision. Wound is undressed with a mild amount of drainage. Mild warmth, no extension of erythema , or worsening infection Extremities: Warm Neuro: Grossly Neurologically Intact Catheters: None Result Diagram: 04/22/17 0529 04/22/17 0529 Lab & Micro Results: Abscess culture grew MRSA 04/14/2017 Assessment & Plan Impression 71-year-old diabetic male with right postauricular abscess status post incision and drainage. Patient is recovering and healing well. Problems: Plan Patient will follow-up in the wound care center. - I requested that wound consult before patient discharges from hospital today and then a follow-up as appropriate in the wound clinic. - Continue Daptomycin per ID recs - Continue glucose control Patient okay to discharge home today, surgery will sign off at this time. Pain Management: Oral Tylenol as needed for pain. VTE Prophylaxis: Sub-Q Heparin (Unfractionated) Resuscitation Status: CPR: Attempt Resuscitation (discussed and verified with patient) Attending Statement: I agree with Dr Britton's assessment and plan. copies to: Eleazar Hernandez MD, Erika R DO Apr 23, 2017 09:04 Eleazar Hernandez MD Apr 25, 2017 12:40
--- NOTE | 2017-04-23 10:37 | NUR ---
Social Work: Readiness for d/c Data: Pt is on day 9 of hospitalization. EMR reviewed. Pt discussed in rounds. MD states pt is ready for d/c today. OPTICS TECHNICAL OFFICER spoke with pt regarding d/c plan. Pt plans to take a taxi home and requested OPTICS TECHNICAL OFFICER assist with setting this up. Pt's is also an inpt on this floor and is also ready for d/c today. Pt states his spouse will take the same taxi home, private pay. OPTICS TECHNICAL OFFICER will continue to follow regarding d/c orders. Assessment: Pt who is independent at baseline. Plan: Pt will d/c home via taxi private pay when medically stable, likely today per . Cathleen Shetty, OPTICS TECHNICAL OFFICER
--- NOTE | 2017-04-23 11:03 | NUR ---
Wound Note Patient seen for wound care right sided neck wound. Periwound continues to be indurated and erythemic, with pressure I am able to express thin serous drainage, this is not painful for the patient. After cleaning the wound with saline and gauze I instructed patient in application of an absorbent dressing (Alginate) held in place with foam tape. Wound continues to measure approximately 2.5 cm L x 2 cm W x 1.8 cm D with inferior tunneling of 1.5 cms. Discussed signs and symptoms of infection with patient, provided patient with an appointment card for follow up at the wound center with Dr Forde 04/29 at 9:00. Patients questions were answered and he verbalized understanding of wound care.
--- NOTE | 2017-04-23 12:05 | PCM.DIMED ---
Discharge Instructions Date of Service Apr 23, 2017 Dates of Hospitalization April 14, 2017 at 07:52 Discharge Diagnosis Discharge Diagnosis Cellulitis/abscesses MRSA of neck Diet Discharge Diet: Heart Healthy, Diabetic Activity Discharge Activity: No restrictions Call your provider Call your provider for: Fever or Chills, Other (pain/worsening redness of wounds on neck or change of drainage to purulent fevers chills) Patient Instructions Patient Instructions Watch the wound perhaps do dressing changes as indicated daily follow up in wound care center finish antibiotics Follow-up Provider: Graeme Steward MD Follow-up with PCP in: Other (call) Provider: Gerardo Forde MD Follow-up in: Other (wound care 9 AM 6/7) Prasanna Sotomayor MD Apr 23, 2017 12:05
[2017-04-23] MEDS ORDERED: INSLIS SUBQ (12:13)
[2017-04-23] MEDS ORDERED: LINE600T2 PO (12:13)
[2017-04-23] MEDS ORDERED: MUPI22OI2 TOPICAL (12:13)
[2017-04-23] MEDS ORDERED: INSU100V7 SUBQ ×2 (12:13)
--- NOTE | 2017-04-23 12:42 | NUR ---
Social Work: Discharge Data: Pt is on day 9 of hospitalization. EMR reviewed. D/C orders are in. OPERATIONS ADMINISTRATIVE ASSISTANT set up taxi for pt for 1:45pm. OPERATIONS ADMINISTRATIVE ASSISTANT notified RN. OPERATIONS ADMINISTRATIVE ASSISTANT will continue to follow if needs arise. Assessment: Pt who is independent at baseline. Plan: Pt will d/c home via taxi today at 1:45pm. OPERATIONS ADMINISTRATIVE ASSISTANT will continue to follow if needs arise. TERRANCE Bojorquez
--- NOTE | 2017-04-23 14:20 | NUR ---
Discharge Reviewed d/c instructions with pt including care notes and new prescriptions, pt signed and given originals, copies to chart. IV d/c intact, no tele to remove. VS stable at time of d/c. All belongings packed by pt in room and taken with him. Pt walked off unit accompanied by FIRE POT OPERATOR to cab below. FIRE POT OPERATOR waited for approx 20 mins as cab was delayed, pt safely put in cab at approx 1415. d/c and accompanied pt in cab ride home.
--- NOTE | 2017-04-23 14:39 | PCM.DC.MED ---
Discharge Summary Date of Service Apr 23, 2017 Dates of Hospitalization Date of Hospital Admission April 14, 2017 at 07:52 Date of Discharge: Apr 23, 2017 Providers: Admitting Physician: Edinson Herron Primary Care Physician: Graeme Steward MD Attending Physician: Edinson Herron Diagnosis at Time of Discharge Diagnosis at Time of Discharge Cellulitis/abscesses MRSA of neck Consultations Surgery Leah/Angel, infectious disease Dr. Powers Procedures XRay, CTs & MRIs Date of Service: 04/14/17147 PROCEDURE: X-RAY CHEST ONE VIEW, PORTABLE ([id number]) IMPRESSION: No acute cardiopulmonary disease. Dictated by: Karthik Molina RRA Interpreted: An Moise MD on 04/14/2017 at 9:09 Transcribed by: ARELY on 04/14/2017 at 9:11 Approved by: An Moise M.D. on 04/14/2017 at 11:59 Date of Service: 04/14/17147 PROCEDURE: CT CERVICAL SPINE WITHOUT CONTRAST ([id number]) IMPRESSION: 1. Limited examination due to motion artifacts. 2. No definitive fractures in cervical spine. 3. Degenerative changes as described. 4. Soft tissue swelling in the right occipital region. 5. Partial opacification of right mastoids. Recommend clinical correlation for mastoiditis. Dictated by: An Moise M.D. on 04/14/2017 at 8:15 Approved by: An Moise M.D. on 04/14/2017 at 8:19 Date of Service: 04/14/17147 PROCEDURE: CT BRAIN WITHOUT CONTRAST ([id number]) IMPRESSION: 1. No acute intracranial abnormalities. 2. Mild cerebral volume loss and chronic microvascular ischemic changes. 3. Right occipital soft tissue swelling. No significant discrepancy with the overnight houseperson radiology preliminary report. Dictated by: An Moise M.D. on 04/14/2017 at 8:12 Approved by: An Moise M.D. on 04/14/2017 at 8:14 Other Diagnostics Date of Service: 04/14/17 1311 PROCEDURE: US SOFT TISSUE OF HEAD OR NECK SONOGRAM IMPRESSION: 1. No drainable fluid present to suggest abscess. 2. Marked soft tissue swelling over the posterior right upper neck/mastoid region consistent with cellulitis. Dictated by: An Moise M.D. on 04/14/2017 at 14:42 Approved by: An Moise M.D. on 04/14/2017 at 14:44 Brief History 71 year old male with a history of insulin dependant diabetes mellitus, hyperlipidemia, and hypertension who presents to the ED via EMS due to reported "falling off his back porch". His blood sugar was 467 on route, and 530 upon recheck in the ED. Patient himself does not recall any fall and tell me that the reason he came to the hospital was because of a neck abscess and drain that has been going on for the past 2 weeks. He says his daughter was trying to manage this at home by squeezing pus out of it but when it seemed that he wasn' t improving she decided to bring him to the hospital. He also tells med that he has not been taking insulin for the past one week after running out of prescription and missing his appointment with the hat presser last . He otherwise denies any fever, chills, nausea, vomiting, change in mental status , fall, or passing out. Hospital Course 71 year old male with a history of insulin dependant diabetes mellitus, hyperlipidemia, and hypertension who presents with possible "falling off his back porch" but also noted to have significant cellulitis and possible abscess of his posterior right neck with significant hyperglycemia and possible acute sepsis on presentation. # Acute right neck cellulitis with abscess, present on admission. Ongoing - Cultures growing MRSA - Post incision and drainage with debridement of right posterior auricular soft tissue abscess on 04/16 - Appreciate ID and surgery consults. will followup with recommendations. - Finished course of IV Daptomycin on 04/21 - Continue with PO antibiotics Zyvox 600 b.i.d. for about 10 days (started on ) - Followup with wound care clinic on discharge - IV Morphine prn for pain control while inpatient # Acute sepsis (Tachycardia, tachypnea, leukocytosis, MATTEO, and lactic acidosis) with source likely right neck cellulitis. Present on admission. Clinically resolved. - Lactic acidosis resolved with IVF - Continue with IV antibiotics - Continue with supportive care # History of diabetes with significant hyperglycemia, present on admission. Still very poorly controlled - Had missed insulin regimen over the past week prior to admission - Increased his home dose Lantus from 40 to 55 units qhs and added AM Lantus which has been titrated up to 35 units daily today - Continue ISS - Patient thinks his sugars are poorly controlled here because they have been serving him pudding and cake with his diabetic meal in the hospital! He says will try not to eat further high sugar food here to see if we can lower his blood glucose - HgA1C 11.1 # History of hypertension. Currently somewhat hypertensive - Resume home dose Lisinopril and then likely Amlodipine # Acute kidney injury, present on admission. Resolved - Likely pre-renal azotemia - Avoid nephrotoxic medications Dispo: Was hoping to discharge him home today but his sugars were in the 400- 500 range this morning! Hopefully home tomorrow if glucose more reasonable after increasing AM Lantus and patient agreeable to eat less sugar and high carbohydrate diet even if provided on his diabetic diet in the hospital! Exam Vital Signs (Last) Date Time Temp Pulse Resp B/P Pulse Ox O2 Delivery O2 Flow Rate FiO2 04/23/17 07:30 Supplement Oxygen 04/23/17 05:24 36.3 63 18 116/70 95 04/21/17 05:06 2.00 Exam General: Alert, Cooperative, No Acute Distress Head: Atraumatic, normocephalic Eyes: Scleral Anicteric, pupils equal conjunctivae clear Nose: No deformity Neck: Supple. right side of the neck with ecchymosis and open wound +/- purulent post auricular/occipital Chest & Lungs: Chest Wall Normal, Cardiovascular: Regular Rate/Rhythm Extremities: Moving 4, no obvious deformity Skin: neck cellulitis as noted above Neurological: Grossly Neurologically Intact, Normal Speech Psych: Pleasant and appropriate Test 04/14/17 01:31 04/14/17 02:50 04/14/17 08:50 04/14/17 13:05 Erythrocyte Sedimentation Rate 63mm/hr (0-30) Prothrombin Time 10.0sec (8.1-12.5) Prothromb Time International Ratio 0.94ratio Activated Partial Thromboplast Time 25.2sec (22.8-33.0) Hemoglobin A1c 11.1% (4.8-5.6) Phosphorus Level 3.2mg/dL (2.5-4.9) Total Bilirubin 0.3mg/dL (0.0-1.2) Aspartate Amino Transf (AST/SGOT) 13U/L (0-50) Alanine Aminotransferase (ALT/SGPT) 11U/L (0-44) Alkaline Phosphatase 118U/L (25-160) Pro-B-Type Natriuretic Peptide 731pg/mL (0-376) Total Protein 7.1g/dL (6.4-8.4) Albumin 3.1g/dL (3.4-5.0) Ketones Small (Negative) Urine Color Yellow (YELLOW) Urine Appearance Clear (CLEAR,HAZY) Urine pH 5.0 (5.0-8.0) Urine Specific [place] 1.022 (1.003-1.035) Urine Protein 30mg/dL (NEG,TRACE) Urine Glucose (UA) >1000mg/dL (NEGATIVE) Urine Ketones Negativemg/dL (NEGATIVE) Urine Occult Blood Small (NEGATIVE) Urine Nitrite Negative (NEGATIVE) Urine Bilirubin Negative (NEGATIVE) Urine Urobilinogen Normalmg/dL (NORMAL) Urine Leukocyte Esterase Negative (NEGATIVE) Urine RBC 0-2/hpf (0-2) Urine WBC 6-10/hpf (0-5) Urine Epithelial Cells Few/hpf (NONE-MOD) Urine Crystals None seen (NONE SEEN) Urine Bacteria None/hpf (NONE-FEW) Urine Hyaline Casts None/lpf (NONE) Urine Granular Casts None seen (NONE SEEN) Urine Waxy Casts None seen (NONE SEEN) Urine Red Blood Cell Casts None seen (NONE SEEN) Urine White Blood Cell Casts None seen (NONE SEEN) Urine Mucus Present (None Seen) Urine Trichomonas None seen (NONE SEEN) Urine Yeast None (NONE SEEN) Urine Culture Reflexed Indicated Lactic Acid Level 1.5mmol/L (0.4-2.0) Magnesium Level 1.9mg/dL (1.6-2.6) Test 04/15/17 05:07 04/16/17 07:45 04/20/17 07:15 04/22/17 05:29 Total Creatine Kinase 95U/L (21-232) Procalcitonin 0.29ng/mL (0.00-0.08) Neutrophils (%) (Auto) 72.5% (40-74) Lymphocytes (%) (Auto) 16.3% (14-46) Monocytes (%) (Auto) 7.2% (4-12) Eosinophils (%) (Auto) 2.6% (0-5) Basophils (%) (Auto) 0.3% (0-3) White Blood Count 9.9th/mm3 (3.8-10.1) Red Blood Count 4.34mil/mm3 (4.40-5.80) Hemoglobin 12.4g/dL (13.8-17.2) Hematocrit 38.6% (41.0-50.0) Mean Corpuscular Volume 88.9fL (81-100) Mean Corpuscular Hemoglobin 28.6pg (27.0-35.0) Mean Corpuscular Hemoglobin Concent 32.1% (32.0-37.0) Red Cell Distribution Width 12.4% (12.3-15.4) Platelet Count 311bil/L (150-400) Sodium Level 141mEq/L (134-144) Potassium Level 5.0mEq/L (3.5-5.2) Chloride Level 101mEq/L (97-108) Carbon Dioxide Level 31mmol/L (18-29) Blood Urea Nitrogen 28mg/dL (8-27) Creatinine 1.27mg/dL (0.76-1.27) Estimat Glomerular Filtration Rate 59mL/min (>59) Glucose Level 351mg/dL (60-99) Calcium Level 9.4mg/dL (8.5-10.1) Discharge Medications Discharge Medications Aspirin (Aspirin) 81 Mg Tablet 81 MG PO DAILY (Reported) Insulin Glargine (Lantus U100 Insulin Vial) 100 Unit/Ml Vial 35 UNIT SUBQ DAILY Prescribed by: SMOOTH BROWNLEE MD Insulin Glargine (Lantus U100 Insulin Vial) 100 Unit/Ml Vial 55 UNIT SUBQ HS Prescribed by: SMOOTH BROWNLEE MD Insulin Human Lispro (HumaLOG U100 Insulin Vial) 100 Unit/Ml Unit 0 UNIT SUBQ [facility]HS Check blood sugars before meals and at bedtime. Use correction factor only before meals. Blood Sugar Lispro Correction: <151, 0 units; 151-175, 1 unit; 176-200, 2 units; 201-225, 3 units; 226-250, 4 units; 251-275, 5 units; 276-300 , 6 units; 301-325, 7 units; 326-350, 8 units; 351-375, 9 units; 376-400, 10 units; >400, 12 units. Prescribed by: SMOOTH BROWNLEE MD Linezolid (Zyvox) 600 Mg Tablet 600 MG PO BID Prescribed by: SMOOTH BROWNLEE MD Lisinopril (Lisinopril) 40 Mg Tablet 40 MG PO BID (Reported) Mupirocin (Mupirocin Ointment) 22 Gm Oint...g. 1 APPLIC TOPICAL BID Prescribed by: SMOOTH BROWNLEE MD Simvastatin (Simvastatin) 80 Mg Tablet 40 MG PO HS (Reported) Followup Plan Disposition: To home Follow-up plan Finish oral antibiotics, wound care / if not sooner. Discharge Diet: Heart Healthy, Diabetic Discharge Activity: No restrictions Patient Instructions Watch the wound perhaps do dressing changes as indicated daily follow up in wound care center finish antibiotics Follow-up Provider: Graeme Steward MD Follow-up with PCP in: Other (call) Provider: Gerardo Forde MD Follow-up in: Other (wound care 9 AM 04/29) Time spent Greater than 35 minutes copies to: Graeme Steward MD; Gerardo Forde MD, Andris E MD Apr 23, 2017 14:39
== END 2017-04-23 13:45 | disposition home or self-care (01) | DRG 854 ==
LOC: SED 01:23 → MPC 07:52
PROVIDERS: ADMIT Internal Medicine; ATTEND Internal Medicine
PROC: 0JB50ZZ Excision of Left Neck Subcutaneous Tissue and Fascia, Open Approach (ICD-10-PCS; principal; 2017-04-16 10:00)
DX: A41.9 Sepsis, unspecified organism (principal); E87.2 Acidosis; L02.11 Cutaneous abscess of neck; N17.9 Acute kidney failure, unspecified; L03.221 Cellulitis of neck; Z68.41 Body mass index [BMI] 40.0-44.9, adult; Z79.4 Long term (current) use of insulin; I10 Essential (primary) hypertension; E78.5 Hyperlipidemia, unspecified; Z91.14 Patient's other noncompliance with medication regimen; E66.01 Morbid (severe) obesity due to excess calories; B95.62 Methicillin resistant Staphylococcus aureus infection as the cause of diseases classified elsewhere; E11.65 Type 2 diabetes mellitus with hyperglycemia

== ENCOUNTER 2017-08-18 02:29 | Emergency (ER) | payer MEDICARE ==
[~2017-08-18] VITALS: Ht 180.3 cm; Wt 134.1 kg
[~2017-08-18 02:29] MED LIST changes: -AMLO2.5T PO; +ASPI-973 PO; -ASPI81TA53 PO; -GLBR5T PO; +INSLIS SUBQ; -INSU100I SUBQ; -INSU100I13 SUBQ; +INSU100V7 SUBQ; +LINE600T2 PO; +MUPI22OI2 TOPICAL
[2017-08-18 02:34] VITALS: BP 170/80; PULSE 80; RESP 20; O2SAT 93
--- NOTE | 2017-08-18 02:42 | ED.REPORT ---
HPI-Rash / Abscess Date of Service Aug 18, 2017 ED Provider: Tan Campbell DO Pt is a 71 year old male with a history of DM, HTN, and hyperlipidemia who presents to the ED complaining of worsening left upper thigh pain onset 1 week ago. He c/o associated erythema and worsening swelling to the area. He denies any other symptoms. Pt reports experiencing similar symptoms previously. Nursing Notes Stated Complaint: L LEG SWOLLEN Chief Complaint: Skin Rash/Abscess Nursing Notes Reviewed: Yes Allergies: Coded Allergies: No Known Allergies (Unverified Allergy, Unknown, 04/14/17) Scheduled Aspirin (Aspirin) 81 Mg Tablet 81 MG PO DAILY Insulin Glargine (Lantus U100 Insulin Vial) 100 Unit/Ml Vial 35 UNIT SUBQ DAILY Insulin Glargine (Lantus U100 Insulin Vial) 100 Unit/Ml Vial 55 UNIT SUBQ HS Insulin Human Lispro (HumaLOG U100 Insulin Vial) 100 Unit/Ml Unit 0 UNIT SUBQ WMHS Check blood sugars before meals and at bedtime. Use correction factor only before meals. Blood Sugar Lispro Correction: <151, 0 units; 151-175, 1 unit; 176-200, 2 units; 201-225, 3 units; 226-250, 4 units; 251-275, 5 units; 276-300 , 6 units; 301-325, 7 units; 326-350, 8 units; 351-375, 9 units; 376-400, 10 units; >400, 12 units. Linezolid (Zyvox) 600 Mg Tablet 600 MG PO BID Lisinopril (Lisinopril) 40 Mg Tablet 40 MG PO BID Mupirocin (Mupirocin Ointment) 22 Gm Oint...g. 1 APPLIC TOPICAL BID Simvastatin (Simvastatin) 80 Mg Tablet 40 MG PO HS General Time Seen by MD: 02:41 Chief Complaint Other (left upper thigh pain) Hx Obtained From: Patient Arrived By: Walk-in Onset Occurred: 1 week ago Symptom Duration: Since onset Location: : Other (left upper thigh) Quality: Painful Severity: Current: Moderate Severity: Maximum: Moderate Recent Healthcare: No recent doctor visit, No recent hospitalization Similar Sx Previous: Yes Past Medical History Past Medical History MRSA Reports: Diabetes mellitus, Hyperlipidemia, Hypertension Past Surgical History None reported Smoking History Never Smoker Social History Alcohol Use: Denies alcohol use Drug Use: Denies drug use Other Social History: Good social support Ambulatory Status Independent Review of Systems + left upper thigh swelling Constitutional: Denies: Fever Musculoskeletal: Reports: Extremity pain, Extremity swelling Complete sys rev & neg: except as marked. Physical Exam Initial Vital Signs Vital Signs (First) Date Time Temp Pulse Resp B/P Pulse Ox O2 Delivery O2 Flow Rate FiO2 08/18/17 02:34 36.9 80 20 170/80 93 Room Air Initial VS: Reviewed Head / Eyes: Atraumatic, Normocephalic Neck: Supple, Full range of motion Respiratory: Breath sounds normal, No respiratory distress Extremities: Vascular intact, Neuro intact Neurologic: Alert, Oriented, Nonfocal Psychiatric: Mood/affect normal, Behavior normal General/Constitutional: Awake, Alert Skin: Warm, Dry Upper Extremity / MS: Neurologic intact, Vascular intact Lower Extremity / Pelvis / MS: Neurologic intact, Vascular intact Cellulitis without abscess of the left proximal thigh. No signs of osteomylelitis. Re-Eval/Medical Decision Med Decision/Clinical Course Cellulitis left proximal 5. No signs of abscess, deep space infection or septic arthritis. Brittle diabetic poorly controlled. I will check labs. His last admission showed multidrug resistant methicillin-resistant staph aureus. Notably clindamycin resistance as well. I suspect that this is also a methicillin-resistant staph aureus infection. As such we will treat him with a dose of IV Linezolid. Labs are pending. The IV is about to be started. Case signed out to Dr. brennan. Source of Hx: Old records Re-Evaluation/Progress : Time of Eval: 02:48 Re-Evaluation/Progress Note: Informed pt of plan for treatment. Pt understands and agrees with plan for treatment. All questions addressed. Counseled Regarding: Diagnosis Discharge & Departure Shift Change Sign-Out Patient Care Transferred: Yes Discussed Complaint(s): Yes Laboratory Evaluation: Ordered, not yet done Imaging Studies: Done, reviewed by me Response to Therapy: Improved Impression: Primary Impression: Cellulitis Site of cellulitis: extremity Site of cellulitis of extremity: lower extremity Laterality: left Qualified Code: L03.116 - Cellulitis of left lower limb Discharge Condition All VS Reviewed: Yes Condition: Stable Referrals: Paul Porras MD (PCP) Care Transferred to: Dr. Lyon Care Transferred at: 03:00 Scribe Attestation Portions of this note were transcribed by Barb Conley. I, Dr. Campbell personally performed the history, physical exam and medical decision-making; I reviewed and confirmed the accuracy of the information in the transcribed note. Signed by : Kale Bardales, 08/17/17. copies to: Paul Porras MD, Todd P DO Aug 18, 2017 02:41 Barb Robert Aug 18, 2017 02:57
[2017-08-18] MEDS ORDERED: Clindamycin Inj 900 MG in IV Premix 1 EACH IV ONE (02:55)
[2017-08-18] MEDS ORDERED: Linezolid Inj 600 MG in IV Premix 1 EACH IV ONE (03:00)
[2017-08-18 03:27] LABS: BASOPHILS % (AUTO) 0.2 % (0-3); EOSINOPHILS % (AUTO) 3.1 % (0-5); MONOCYTES % (AUTO) 8.7 % (4-12); Mean Corpuscular Volume 87.3 fL (81-100); NEUTROPHILS % (AUTO) 59.7 % (40-74); Platelet Count 175 bil/L (150-400)
[2017-08-18] MEDS ORDERED: LINE600T7 PO (04:58)
[2017-08-18 05:11] VITALS: BP 168/78; PULSE 79; RESP 18; O2SAT 96
== END 2017-08-18 05:16 | disposition home or self-care (01) ==
LOC: SED 02:29
DX: L03.116 Cellulitis of left lower limb (principal); I10 Essential (primary) hypertension; E11.9 Type 2 diabetes mellitus without complications; E78.5 Hyperlipidemia, unspecified; Z86.14 Personal history of Methicillin resistant Staphylococcus aureus infection; Z79.82 Long term (current) use of aspirin; Z79.4 Long term (current) use of insulin
CPT/HCPCS: 36415; 80053; 85025; 96365; 99284; J2020